=== PATIENT | male | born 1965 | race Caucasian/White ===

== ENCOUNTER 2019-05-16 16:44 | Inpatient (IN) | payer BC ==
[~2019-05-16] VITALS: Ht 190.5 cm; Wt 107.1 kg
[2019-05-16] MEDS ORDERED: PANTOPRAZOLE IV PUSH 40 MG VIAL. IVP ONE (17:45)
[2019-05-16] MEDS ORDERED: IV NORMAL SALINE 1000ML BAG 1,000 ML IV ONE ×2 (17:45→23:00)
[2019-05-16 17:53] LABS: FECAL OB PT POSITIVE (NEG)
--- NOTE | 2019-05-16 18:17 | EKG ---
[facility] [address] [place] [address] Test Date: 2019-05-16 Test Time: 17:40:55 Pat Name: PUMA RODRIGUEZ Department: Room: Gender: M [employer] Clerk: : 1965 Requested By: TIARA HOLLEY Order Number: [id number] Reading MD: Measurements Intervals [place] Rate: 83 P: 56 FL: 148 QRS: -8 QRSD: 94 T: 12 QT: 392 QTc: 461 Interpretive Statements SINUS RHYTHM LEFTWARD AXIS OTHERWISE NORMAL ECG RI6.01 No previous ECG available for comparison
[2019-05-16 18:21] LABS: BASO % 1 % (0-3); EOS # 0.1 x10^3/uL (0.0-0.7); EOS % 3 % (0-3); HEMATOCRIT 26.3 % (39.0-53.0); HEMOGLOBIN 9.1 g/dL (13.0-17.5); LYMPH # 0.5 x10^3/uL (1.0-4.8); LYMPH % 15 % (24-48); MEAN CORPUSCULAR HEMOGLOBIN 28 pg (25-35); MEAN CORPUSCULAR HGB CONC 35 g/dL (31-37); MEAN CORPUSCULAR VOLUME 81 fL (79-100); MONO # 0.4 x10^3/uL (0.0-1.1); MONO % 11 % (0-9); NEUT # 2.2 x10^3/uL (1.8-7.7); NEUT % 70 % (31-73); PLATELET COUNT 54 x10^3/uL (140-400); RED BLOOD COUNT 3.27 x10^6/uL (4.30-5.70); RED CELL DISTRIBUTION WIDTH 15.6 % (11.5-14.5); WHITE BLOOD COUNT 3.2 x10^3/uL (4.0-11.0)
[2019-05-16 18:41] LABS: CALCIUM 8.1 mg/dL (8.5-10.1); CREATININE 0.9 mg/dL (0.7-1.3); GFR 87.6; POTASSIUM 4.1 mmol/L (3.5-5.1)
[2019-05-16 18:47] LABS: ALBUMIN/GLOBULIN RATIO 0.8 (1.0-1.7); MAGNESIUM 1.5 mg/dL (1.8-2.4); TOTAL BILIRUBIN 1.3 mg/dL (0.2-1.0); TOTAL PROTEIN 6.6 g/dL (6.4-8.2)
[2019-05-16] MEDS ORDERED: IOHEXOL 300 MG/ML 100ML VIAL. IV ONE (19:00)
[2019-05-16] MEDS ORDERED: CONTRAST GIVEN. MC PRN (19:00)
[2019-05-16 19:28] LABS: BILIRUBIN,URINE NEGATIVE (NEG); CLARITY,URINE CLEAR; COLOR,URINE YELLOW; NITRITE,URINE NEGATIVE (NEG); PH,URINE 6.5; PROTEIN,URINE NEGATIVE (NEG-TRACE)
[2019-05-16] MEDS ORDERED: MAGNESIUM SULFATE 1GM 100 ML IV ONE (19:30)
[2019-05-16 19:32] LABS: BACTERIA,URINE 0 /HPF (0-FEW); RBC,URINE 0 /HPF (0-2); WBC,URINE OCC /HPF (0-4)
[2019-05-16 19:33] LABS: SQUAMOUS EPITHELIAL CELL,UR MOD /LPF
[2019-05-16 19:41] LABS: BARBITURATES NEG (NEG); BENZODIAZEPINES NEG (NEG); CANNABINOIDS NEG (NEG); COCAINE NEG (NEG); METHADONE NEG (NEG); OPIATES NEG (NEG); PHENCYCLIDINE NEG (NEG)
[2019-05-16 19:42] LABS: AMPHETAMINE/METHAMPHETAMINE NEG (NEG)
--- NOTE | 2019-05-16 20:55 | RAD ---
INDICATION: Rectal bleeding with abdomen pain COMPARISON: None. TECHNIQUE: Axial CT images obtained through the abdomen and pelvis with contrast. One or more of the following individualized dose reduction techniques were utilized for this examination: 1. Automated exposure control; 2. Adjustment of the mA and/or kV according to patient size; 3. Use of iterative reconstruction technique. FINDINGS: Dependent opacity at the left lung base. Coronary artery calcific atherosclerosis. Severe calcific atherosclerosis without abdominal aortic aneurysm. Fat-containing inguinal hernias. Liver is low density with nodular contour. Postcholecystectomy. Spleen is enlarged. Edema within the upper abdomen adjacent to the pancreas and duodenum. Is also seen adjacent to the liver. There are some scattered enlarged lymph nodes. No hydronephrosis. Urinary bladder is partially distended. Subcutaneous edema anterior abdominal wall. The appendix does not appear dilated. There is edema and small amount of fluid seen bilaterally including in the paracolic gutter region. No dilated loops of bowel to suggest obstruction. Degenerative changes throughout the spine with multilevel central canal and neural foraminal stenosis. IMPRESSION: 1. There is edema seen adjacent to the pancreas and duodenum. This appears more centered around the duodenum and would correlate for possible causes such as duodenitis or duodenal ulcer although given that the pancreas is near this level a superimposed pancreatitis is not excluded. 2. There is some additional edema and small amount of fluid tracking more inferiorly along the paracolic gutter region. 3. Cirrhotic liver morphology. There is also splenomegaly. Would correlate for possible causes such as portal hypertension and cirrhosis. 4. There are some enlarged lymph nodes in the upper abdomen which could be reactive in nature but follow-up could be obtained to ensure no growth to exclude neoplastic causes. 5. Calcific atherosclerosis including coronary arteries. 6. Dependent opacity left lung base could be from atelectasis or infiltrate Electronically signed by: Jeffery Gonzalez MD (05/16/2019 8:52 PM) [facility]
--- NOTE | 2019-05-16 22:11 | PHYS DOC ---
Past Medical History Past Medical History: CAD, Diabetes-Type II, Liver Disease, [place], Other Additional Past Medical Histor: Esophagial Varieses, Fatty liver, chirrosis (TIARA HOLLEY APRN) Past Surgical History: Cholecystectomy, Coronary Bypass Surgery (TIARA HOLLEY APRN) Additional Information: Quit in 1999. Alcohol Use: Occasionally Drug Use: None (TIARA HOLLEY APRN) Adult General Chief Complaint Chief Complaint: RECTAL BLEED HPI HPI Patient is a 53 year old male with history of CAD, diabetes type 2, MN, liver cirrhosis, esophageal varices who presents to the ED today complaining of rectal bleeding and bloody stools but began sometime this afternoon. Patient is also complaining of nausea. Denies any abdominal pain. Denies any fever. He states he follows up with a GI specialist who has done an upper GI as well as a colonoscopy, he states he was noted for polyps that were noncancerous which were removed. (TIARA HOLLEY APRN) Review of Systems Review of Systems Constitutional: Denies fever or chills [] Eyes: Denies change in visual acuity, redness, or eye pain [] HENT: Denies nasal congestion or sore throat [] Respiratory: Denies cough or shortness of breath [] Cardiovascular: No additional information not addressed in HPI [] GI: Reports rectal bleeding, nausea. Denies abdominal pain, bloody stools or diarrhea [] : Denies dysuria or hematuria [] Musculoskeletal: Denies back pain or joint pain [] Integument: Denies rash or skin lesions [] Neurologic: Denies headache, focal weakness or sensory changes [] All other systems were reviewed and found to be within normal limits, except as documented in this note. (TIARA HOLLEY APRN) Current Medications Current Medications Current Medications Medications (Trade) Dose Ordered Sig/Mp Start Time Stop Time Status Last Admin Dose Admin Info (CONTRAST GIVEN -- Rx MONITORING) 1 each PRN DAILY PRN 05/16/19 19:00 05/18/19 18:59 Iohexol (Omnipaque 300 Mg/ml) 75 ml 1X ONCE 05/16/19 19:00 05/16/19 19:01 DC 05/16/19 19:43 75 ML Magnesium Sulfate/ Dextrose 100 ml @ 100 mls/hr 1X ONCE 05/16/19 19:30 05/16/19 20:29 DC 05/16/19 20:02 100 MLS/HR Pantoprazole Sodium (PROTONIX VIAL for IV PUSH) 40 mg 1X ONCE 05/16/19 17:45 05/16/19 17:46 DC 05/16/19 18:04 40 MG Sodium Chloride 1,000 ml @ 1,000 mls/hr 1X ONCE 05/16/19 17:45 05/16/19 18:44 DC 05/16/19 18:04 1,000 MLS/HR (KALLI LOOMIS DO) Allergies Allergies Allergies Coded Allergies Type Severity Reaction Last Updated Verified lisinopril Adverse Reaction Intermediate cough 05/16/19 Yes (KALLI LOOMIS DO) Physical Exam Physical Exam Constitutional: Well developed, well nourished, no acute distress, non-toxic appearance. [] HENT: Normocephalic, atraumatic, bilateral external ears normal, oropharynx moist, no oral exudates, nose normal. [] Eyes: PERRLA, EOMI, conjunctiva normal, no discharge. [] Neck: Normal range of motion, no tenderness, supple, no stridor. [] Cardiovascular:Heart rate regular rhythm, no murmur [] Lungs & Thorax: Bilateral breath sounds clear to auscultation [] Abdomen: Bowel sounds normal, soft, no tenderness, no masses, no pulsatile masses. [] Rectal exam External rectum appears normal, positive bedside Hemoccult. No internal hemorrhoids or masses. Skin: Warm, dry, no erythema, no rash. [] Back: No tenderness, no CVA tenderness. [] Extremities: No tenderness, no cyanosis, no clubbing, ROM intact, no edema. [] Neurologic: Alert and oriented X 3, normal motor function, normal sensory function, no focal deficits noted. [] Psychologic: Affect normal, judgement normal, mood normal. [] (TIARA HOLLEY APRN) Current Patient Data Vital Signs Vital Signs Date Time Temp Pulse Resp B/P (MAP) Pulse Ox O2 Delivery O2 Flow Rate FiO2 05/16/19 22:26 73 16 150/67 (94) 98 Room Air 05/16/19 17:24 98.1 98.1 (KALLI LOOMIS DO) Lab Values Laboratory Tests Test 05/16/19 17:20 05/16/19 18:08 05/16/19 19:15 Stool Occult Blood Positive (NEG) White Blood Count 3.2 x10^3/uL (4.0-11.0) L Red Blood Count 3.27 x10^6/uL (4.30-5.70) L Hemoglobin 9.1 g/dL (13.0-17.5) L Hematocrit 26.3 % (39.0-53.0) L Mean Corpuscular Volume 81 fL (79-100) Mean Corpuscular Hemoglobin 28 pg (25-35) Mean Corpuscular Hemoglobin Concent 35 g/dL (31-37) Red Cell Distribution Width 15.6 % (11.5-14.5) H Platelet Count 54 x10^3/uL (140-400) L Neutrophils (%) (Auto) 70 % (31-73) Lymphocytes (%) (Auto) 15 % (24-48) L Monocytes (%) (Auto) 11 % (0-9) H Eosinophils (%) (Auto) 3 % (0-3) Basophils (%) (Auto) 1 % (0-3) Neutrophils # (Auto) 2.2 x10^3/uL (1.8-7.7) Lymphocytes # (Auto) 0.5 x10^3/uL (1.0-4.8) L Monocytes # (Auto) 0.4 x10^3/uL (0.0-1.1) Eosinophils # (Auto) 0.1 x10^3/uL (0.0-0.7) Basophils # (Auto) 0.0 x10^3/uL (0.0-0.2) Sodium Level 142 mmol/L (136-145) Potassium Level 4.1 mmol/L (3.5-5.1) Chloride Level 107 mmol/L (98-107) Carbon Dioxide Level 28 mmol/L (21-32) Anion Gap 7 (6-14) Blood Urea Nitrogen 16 mg/dL (8-26) Creatinine 0.9 mg/dL (0.7-1.3) Estimated GFR (Cockcroft-Gault) 87.6 BUN/Creatinine Ratio 18 (6-20) Glucose Level 270 mg/dL (70-99) H Calcium Level 8.1 mg/dL (8.5-10.1) L Magnesium Level 1.5 mg/dL (1.8-2.4) L Total Bilirubin 1.3 mg/dL (0.2-1.0) H Aspartate Amino Transferase (AST) 83 U/L (15-37) H Alanine Aminotransferase (ALT) 83 U/L (16-63) H Alkaline Phosphatase 133 U/L (46-116) H Creatine Kinase 240 U/L (39-308) Creatine Kinase MB (Mass) 4.3 ng/mL (0.0-3.6) H Creatine Kinase MB Relative Index 1.8 % (0-4) Troponin I Quantitative < 0.017 ng/mL (0.000-0.055) IN-Rov-Z-Type Natriuretic Peptide 131 pg/mL (0-124) H Total Protein 6.6 g/dL (6.4-8.2) Albumin 3.0 g/dL (3.4-5.0) L Albumin/Globulin Ratio 0.8 (1.0-1.7) L Lipase 106 U/L (73-393) Urine Collection Type Unknown Urine Color Yellow Urine Clarity Clear Urine pH 6.5 Urine Specific [place] 1.025 Urine Protein Negative mg/dL (NEG-TRACE) Urine Glucose (UA) >=1000 mg/dL (NEG) Urine Ketones (Stick) Negative mg/dL (NEG) Urine Blood Negative (NEG) Urine Nitrite Negative (NEG) Urine Bilirubin Negative (NEG) Urine Urobilinogen Dipstick 1.0 mg/dL (0.2 mg/dL) Urine Leukocyte Esterase Negative (NEG) Urine RBC 0 /HPF (0-2) Urine WBC Occ /HPF (0-4) Urine Squamous Epithelial Cells Mod /LPF Urine Bacteria 0 /HPF (0-FEW) Urine Mucus Slight /LPF Urine Opiates Screen Neg (NEG) Urine Methadone Screen Neg (NEG) Urine Barbiturates Neg (NEG) Urine Phencyclidine Screen Neg (NEG) Urine Amphetamine/Methamphetamine Neg (NEG) Urine Benzodiazepines Screen Neg (NEG) Urine Cocaine Screen Neg (NEG) Urine Cannabinoids Screen Neg (NEG) Urine Ethyl Alcohol Neg (NEG) Laboratory Tests 05/16/19 18:08 Laboratory Tests 05/16/19 18:08 (KALLI LOOMIS DO) EKG EKG [address] Loomis sinus rhythm Hr 83 no STEMI[] (TIARA HOLLEY APRN) Radiology/Procedures Radiology/Procedures []PROCEDURE: CT ABD PELV W/ IV CONTRST ONLY INDICATION: Rectal bleeding with abdomen pain COMPARISON: None. TECHNIQUE: Axial CT images obtained through the abdomen and pelvis with contrast. One or more of the following individualized dose reduction techniques were utilized for this examination: 1. Automated exposure control; 2. Adjustment of the mA and/or kV according to patient size; 3. Use of iterative reconstruction technique. FINDINGS: Dependent opacity at the left lung base. Coronary artery calcific atherosclerosis. Severe calcific atherosclerosis without abdominal aortic aneurysm. Fat-containing inguinal hernias. Liver is low density with nodular contour. Postcholecystectomy. Spleen is enlarged. Edema within the upper abdomen adjacent to the pancreas and duodenum. Is also seen adjacent to the liver. There are some scattered enlarged lymph nodes. No hydronephrosis. Urinary bladder is partially distended. Subcutaneous edema anterior abdominal wall. The appendix does not appear dilated. There is edema and small amount of fluid seen bilaterally including in the paracolic gutter region. No dilated loops of bowel to suggest obstruction. Degenerative changes throughout the spine with multilevel central canal and neural foraminal stenosis. IMPRESSION: 1. There is edema seen adjacent to the pancreas and duodenum. This appears more centered around the duodenum and would correlate for possible causes such as duodenitis or duodenal ulcer although given that the pancreas is near this level a superimposed pancreatitis is not excluded. 2. There is some additional edema and small amount of fluid tracking more inferiorly along the paracolic gutter region. 3. Cirrhotic liver morphology. There is also splenomegaly. Would correlate for possible causes such as portal hypertension and cirrhosis. 4. There are some enlarged lymph nodes in the upper abdomen which could be reactive in nature but follow-up could be obtained to ensure no growth to exclude neoplastic causes. 5. Calcific atherosclerosis including coronary arteries. 6. Dependent opacity left lung base could be from atelectasis or infiltrate Electronically signed by: uSsana Edwards MD (05/16/2019 8:52 PM) [facility] DICTATED and SIGNED BY: SUSANA EDWARDS MD DATE: 05/16/192051 (TIARA HOLLEY APRN) Course & Med Decision Making Course & Med Decision Making Pertinent Labs and Imaging studies reviewed. (See chart for details) This is a 53-year-old male patient presenting to the ED today with rectal bleeding that began this afternoon. CBC with a hemoglobin of 9.1, hematocrit 26.3, glucose 270, magnesium 1.5-given Magnesium IV, AST and ALT are 83. Patient states he has had rectal bleeding before and his hemoglobin tends to run low as low as 7.0. His Hemoccult is positive. He was given Protonix IV push in the ED. I spoke to Dr. Tamara ROTH. Admitted under Dr. Smith IV protonix and NS ordered (TIARA HOLLEY APRN) Dragon Disclaimer Dragon Disclaimer This electronic medical record was generated, in whole or in part, using a voice recognition dictation system. (TIARA HOLLEY APRN) Departure Departure Impression: Primary Impression: Rectal bleeding Additional Impressions: Transaminitis Hypomagnesemia Disposition: ADMITTED INPATIENT Condition: STABLE Referrals: UNKNOWN PCP NAME (PCP) Attending Signature Attending Signature I have reviewed the PA/COOK ROOM SUPERVISOR's note and plan of care. I was available for consultation as needed during the patient's visit in the emergency department. I agree with the clinical impression, plan, and disposition. (KALLI LOOMIS DO) Problem Qualifiers TIARA HOLLEY APRN May 16, 2019 22:11 KALLI LOOMIS DO May 18, 2019 04:19
[2019-05-16] MEDS ORDERED: MORPHINE SULFATE 4 MG/ML VIAL. IV PRN (22:45)
[2019-05-16] MEDS ORDERED: ONDANSETRON PF 4 MG/2 ML VIAL. IV PRN (22:45)
[2019-05-16] MEDS ORDERED: MAGNESIUM SULFATE 2GM 50 ML IV ONE (23:00)
[2019-05-16] MEDS: PANTOPRAZOLE SODIUM IV DRIP 80 MG in IV NORMAL SALINE 100ML 100 ML IV SCH (23:52)
[2019-05-17] VITALS (7 sets, daily range): BP systolic 111–132; BP diastolic 54–73
--- NOTE | 2019-05-17 00:15 | NUR ---
Pt. arrived on unit by wheelchair from ED with Suri at bedside. at 0015. Pt. A&Ox4, RA, VSS. No complaints of pain. Bed in lowest position and call light within reach. Will continue to monitor.
[2019-05-17] MEDS ORDERED: CRESTOR20 MG PO (02:10)
[2019-05-17] MEDS ORDERED: PANT20TA2 PO (02:10)
[2019-05-17] MEDS ORDERED: INSU100V37 SQ (02:10)
[2019-05-17] MEDS ORDERED: IRBE300T3 PO (02:10)
[2019-05-17] MEDS ORDERED: METF10007 PO (02:10)
[2019-05-17] MEDS ORDERED: INSU100C4 SQ (02:10)
[2019-05-17] MEDS ORDERED: PROP40TA PO (02:10)
--- NOTE | 2019-05-17 08:08 | PDOC1 ---
History and Physical Date of Admission Date of Admission DATE: 05/17/19 TIME: 08:05 Identification/Chief Complaint Chief Complaint Blood in stool Source Source: Patient History of Present Illness History of Present Illness Mr Tucker is a 53yo M w/ PMHx hypertriglyceridemia, DM2, Obesity, CAD w/ stents, HTN, HLD, BPH, GERD, cirrhosis w/ esophageal varices, RUPAL, colon polyps who presents with dark tarry and bright red blood in his stool. Has occurred about every 2 hours since. Reports h/o cirrhosis 2/2 [place] and esophageal varices - previously evaluated at [facility] and [facility]/transplant. Some nausea w/o vomiting. Doesn't feel hungry but would like water. No dysphagia. H/o GERD (denies heartburn/reflux) on pantoprazole QD. No abd pain. Denies diarrhea and constipation. No weight loss. [facility] records shown to be on his [employer] mayela - neg Hepatitis panel, MELA, AMA, HFE, and normal alpha 1 antitrypsin. Also sayearnest was seen at [facility] on Thursday for chest pain - says was given ASA and PE was ruled out last week. Has had EGD twice in the past year, states he has grade II varices. No transfusions, but has had iron IV previously. Denies CP and SOB currently, just feels nausea and fatigue. Past Medical History Cardiovascular: CAD, HTN Pulmonary: No pertinent hx GI: Constipation, Diverticulosis, GERD Heme/Onc: Anemia NOS Hepatobiliary: Cirrhosis Psych: No pertinent hx Rheumatologic: No pertinent hx Infectious disease: No pertinent hx ENT: No pertinent hx Renal/: No pertinent hx Endocrine: No pertinent hx Dermatology: No pertinent hx Past Surgical History Past Surgical History: Cholecystectomy Family History Family History: Diabetes, Hepatitis, High Cholestrol Social History Smoke: No ALCOHOL: none Drugs: None Current Problem List Problem List Problems Medical Problems: (1) Hypomagnesemia Status: Acute (2) Rectal bleeding Status: Acute (3) Transaminitis Status: Acute Current Medications Current Medications Current Medications Pantoprazole Sodium (PROTONIX VIAL for IV PUSH) 40 mg 1X ONCE IVP Last administered on 05/16/19at 18:04; Start 05/16/19 at 17:45; Stop 05/16/19 at 17:46; Status DC Sodium Chloride 1,000 ml @ 1,000 mls/hr 1X ONCE IV Last administered on 05/16/19at 18:04; Start 05/16/19 at 17:45; Stop 05/16/19 at 18:44; Status DC Iohexol (Omnipaque 300 Mg/ml) 75 ml 1X ONCE IV Last administered on 05/16/19at 19:43; Start 05/16/19 at 19:00; Stop 05/16/19 at 19:01; Status DC Info (CONTRAST GIVEN -- Rx MONITORING) 1 each PRN DAILY PRN MC SEE COMMENTS; Start 05/16/19 at 19:00; Stop 05/18/19 at 18:59 Magnesium Sulfate/ Dextrose 100 ml @ 100 mls/hr 1X ONCE IV Last administered on 05/16/19at 20:02; Start 05/16/19 at 19:30; Stop 05/16/19 at 20:29; Status DC Ondansetron HCl (Zofran) 4 mg PRN Q8HRS PRN IV NAUSEA/VOMITING 1ST CHOICE Last administered on 05/17/19at 02:10; Start 05/16/19 at 22:45; Stop 05/17/19 at 22:44 Morphine Sulfate (Morphine Sulfate) 4 mg PRN Q2HR PRN IV SEVERE PAIN 7-10; Start 05/16/19 at 22:45; Stop 05/17/19 at 22:44 Pantoprazole Sodium 80 mg/ Sodium Chloride 100 ml @ 10 mls/hr Q10H IV Last administered on 05/16/19at 23:53; Start 05/16/19 at 23:00; Stop 05/17/19 at 22:59 Sodium Chloride 1,000 ml @ 75 mls/hr 1X ONCE IV Last administered on 05/16/19at 23:53; Start 05/16/19 at 23:00; Stop 05/17/19 at 12:19 Magnesium Sulfate 50 ml @ 25 mls/hr 1X ONCE IV Last administered on 05/16/19at 23:53; Start 05/16/19 at 23:00; Stop 05/17/19 at 00:59; Status DC Active Scripts Active Reported Irbesartan 300 Mg Tablet 150 Mg PO DAILY Tresiba (Insulin Degludec) 100 Unit/1 Ml Vial 116 Unit SQ HS Novolog (Insulin Aspart) 100 Unit/1 Ml Cartridge 35 Unit SQ WITH BREAKFAST Propranolol Hcl 40 Mg Tablet 1 Tab PO BID Crestor (Rosuvastatin Calcium) 20 Mg Tablet 1 Tab PO DAILY Protonix (Pantoprazole Sodium) 20 Mg Tablet.dr 1 Tab PO DAILY Metformin Hcl 1,000 Mg Tablet 1,000 Mg PO BIDWMEALS Allergies Allergies: Coded Allergies: lisinopril (Verified Adverse Reaction, Intermediate, cough, 05/16/19) cough ROS General: YES: Fatigue, Malaise, Appetite; No: Chills, Night Sweats, Other PSYCHOLOGICAL ROS: No: Anxiety, Behavioral Disorder, Concentration difficultie, Decreased libido, Depression, Disorientation, Hallucinations, Hostility, Irritablity, Memory difficulties, Mood Swings, Obsessive thoughts, Physical abuse, Sexual abuse, Sleep disturbances, Suicidal ideation, Other Eyes: No Blurry vision, No Decreased vision, No Double vision, No Dry eyes, No Excessive tearing, No Eye Pain, No Itchy Eyes, No Loss of vision, No Photophobia, No Scotomata, No Uses contacts, No Uses glasses, No Other HEENT: No: Heacaches, Visual Changes, Hearing change, Nasal congestion, Nasal discharge, Oral lesions, Sinus pain, Sore Throat, Epistaxis, Sneezing, Snoring, Tinnitus, Vertigo, Vocal changes, Other ALLERGY AND IMMUNOLOGY: No: Hives, Insect Bite Sensitivity, Itchy/Watery Eyes, Nasal Congestion, Post Nasal Drip, Seasonal Allergies, Other Hematological and Lymphatic: No: Bleeding Problems, Blood Clots, Blood Transfusions, Brusing, Night Sweats, Pallor, Swollen Lymph Nodes, Other ENDOCRINE: No: Breast Changes, Galactorrhea, Hair Pattern Changes, Hot Flashes, Malaise/lethargy, Mood Swings, Palpitations, Polydipsia/polyuria, Skin Changes, Temperature Intolerance, Unexpected Weight Changes, Other Breast: No New/Changing Breast Lumps, No Nipple changes, No Nipple discharge, No Other Respiratory: No: Cough, Hemoptysis, Orthopnea, Pleuritic Pain, Shortness of breath, SOB with excertion, Sputum Changes, Stridor, Tachypnea, Wheezing, Other Cardiovascular: No Chest Pain, No Palpitations, No Orthopnea, No Paroxysmal Noc. Dyspnea, No Edema, No Lt Headedness, No Other Gastrointestinal: Yes Nausea, Yes Abdominal Pain, Yes Melena, Yes Hematochezia; No Vomiting, No Diarrhea, No Constipation, No Other Genitourinary: No Dysuria, No Frequency, No Incontinence, No Hematuria, No Retention, No Discharge, No Urgency, No Pain, No Flank Pain, No Other, No , No , No , No , No , No , No Musculoskeletal: No Gait Disturbance, No Joint Pain, No Joint Stiffness, No Joint Swelling, No Muscle Pain, No Muscular Weakness, No Pain In:, No Swelling In:, No Other Neurological: No Behavorial Changes, No Bowel/Bladder ControlChng, No Confusion, No Dizziness, No Gait Disturbance, No Headaches, No Impaired Coord/balance, No Memory Loss, No Numbness/Tingling, No Seizures, No Speech Problems, No Tremors, No Visual Changes, No Weakness, No Other Skin: No Dry Skin, No Eczema, No Hair Changes, No Lumps, No Mole Changes, No Mottling, No Nail Changes, No Pruritus, No Rash, No Skin Lesion Changes, No Other, No Acne Physical Exam General: Alert, Oriented X3, Cooperative, No acute distress HEENT: Atraumatic, PERRLA, EOMI, Mucous membr. moist/pink Lungs: Clear to auscultation, Normal air movement Heart: S1S2, RRR, no gallops, no murmurs Abdomen: Normal bowel sounds, Soft, Other (epigastric tenderness, spleen palpable) Rectal Exam: hemorrhoids Extremities: No clubbing, No cyanosis, No edema, Normal pulses, No tenderness/swelling Skin: No rashes, No breakdown, No significant lesion Neuro: Normal gait, Normal speech, Strength at 5/5 X4 ext, Normal tone, Sensation intact, Cranial nerves 3-12 NL, Reflexes 2+ Psych/Mental Status: Mental status NL, Mood NL Vitals Vitals Vital Signs Date Time Temp Pulse Resp B/P (MAP) Pulse Ox O2 Delivery O2 Flow Rate FiO2 05/17/19 03:00 98.2 76 18 131/61 (84) 97 Room Air 98.2 Labs Labs Laboratory Tests Test 05/16/19 17:20 05/16/19 18:08 05/16/19 19:15 05/17/19 02:02 Stool Occult Blood Positive (NEG) White Blood Count 3.2 x10^3/uL (4.0-11.0) Red Blood Count 3.27 x10^6/uL (4.30-5.70) Hemoglobin 9.1 g/dL (13.0-17.5) Hematocrit 26.3 % (39.0-53.0) Mean Corpuscular Volume 81 fL (79-100) Mean Corpuscular Hemoglobin 28 pg (25-35) Mean Corpuscular Hemoglobin Concent 35 g/dL (31-37) Red Cell Distribution Width 15.6 % (11.5-14.5) Platelet Count 54 x10^3/uL (140-400) Neutrophils (%) (Auto) 70 % (31-73) Lymphocytes (%) (Auto) 15 % (24-48) Monocytes (%) (Auto) 11 % (0-9) Eosinophils (%) (Auto) 3 % (0-3) Basophils (%) (Auto) 1 % (0-3) Neutrophils # (Auto) 2.2 x10^3/uL (1.8-7.7) Lymphocytes # (Auto) 0.5 x10^3/uL (1.0-4.8) Monocytes # (Auto) 0.4 x10^3/uL (0.0-1.1) Eosinophils # (Auto) 0.1 x10^3/uL (0.0-0.7) Basophils # (Auto) 0.0 x10^3/uL (0.0-0.2) Sodium Level 142 mmol/L (136-145) Potassium Level 4.1 mmol/L (3.5-5.1) Chloride Level 107 mmol/L (98-107) Carbon Dioxide Level 28 mmol/L (21-32) Anion Gap 7 (6-14) Blood Urea Nitrogen 16 mg/dL (8-26) Creatinine 0.9 mg/dL (0.7-1.3) Estimated GFR (Cockcroft-Gault) 87.6 BUN/Creatinine Ratio 18 (6-20) Glucose Level 270 mg/dL (70-99) Calcium Level 8.1 mg/dL (8.5-10.1) Magnesium Level 1.5 mg/dL (1.8-2.4) Total Bilirubin 1.3 mg/dL (0.2-1.0) Aspartate Amino Transf (AST/SGOT) 83 U/L (15-37) Alanine Aminotransferase (ALT/SGPT) 83 U/L (16-63) Alkaline Phosphatase 133 U/L (46-116) Creatine Kinase 240 U/L (39-308) Creatine Kinase MB (Mass) 4.3 ng/mL (0.0-3.6) Creatine Kinase MB Relative Index 1.8 % (0-4) Troponin I Quantitative < 0.017 ng/mL (0.000-0.055) SI-Pgr-R-Type Natriuretic Peptide 131 pg/mL (0-124) Total Protein 6.6 g/dL (6.4-8.2) Albumin 3.0 g/dL (3.4-5.0) Albumin/Globulin Ratio 0.8 (1.0-1.7) Lipase 106 U/L (73-393) Urine Collection Type Unknown Urine Color Yellow Urine Clarity Clear Urine pH 6.5 Urine Specific [place] 1.025 Urine Protein Negative mg/dL (NEG-TRACE) Urine Glucose (UA) >=1000 mg/dL (NEG) Urine Ketones (Stick) Negative mg/dL (NEG) Urine Blood Negative (NEG) Urine Nitrite Negative (NEG) Urine Bilirubin Negative (NEG) Urine Urobilinogen Dipstick 1.0 mg/dL (0.2 mg/dL) Urine Leukocyte Esterase Negative (NEG) Urine RBC 0 /HPF (0-2) Urine WBC Occ /HPF (0-4) Urine Squamous Epithelial Cells Mod /LPF Urine Bacteria 0 /HPF (0-FEW) Urine Mucus Slight /LPF Urine Opiates Screen Neg (NEG) Urine Methadone Screen Neg (NEG) Urine Barbiturates Neg (NEG) Urine Phencyclidine Screen Neg (NEG) Urine Amphetamine/Methamphetamine Neg (NEG) Urine Benzodiazepines Screen Neg (NEG) Urine Cocaine Screen Neg (NEG) Urine Cannabinoids Screen Neg (NEG) Urine Ethyl Alcohol Neg (NEG) Glucose (Fingerstick) 190 mg/dL (70-99) Laboratory Tests Test 05/16/19 17:20 05/16/19 18:08 05/16/19 19:15 05/17/19 02:02 Stool Occult Blood Positive (NEG) White Blood Count 3.2 x10^3/uL (4.0-11.0) Red Blood Count 3.27 x10^6/uL (4.30-5.70) Hemoglobin 9.1 g/dL (13.0-17.5) Hematocrit 26.3 % (39.0-53.0) Mean Corpuscular Volume 81 fL (79-100) Mean Corpuscular Hemoglobin 28 pg (25-35) Mean Corpuscular Hemoglobin Concent 35 g/dL (31-37) Red Cell Distribution Width 15.6 % (11.5-14.5) Platelet Count 54 x10^3/uL (140-400) Neutrophils (%) (Auto) 70 % (31-73) Lymphocytes (%) (Auto) 15 % (24-48) Monocytes (%) (Auto) 11 % (0-9) Eosinophils (%) (Auto) 3 % (0-3) Basophils (%) (Auto) 1 % (0-3) Neutrophils # (Auto) 2.2 x10^3/uL (1.8-7.7) Lymphocytes # (Auto) 0.5 x10^3/uL (1.0-4.8) Monocytes # (Auto) 0.4 x10^3/uL (0.0-1.1) Eosinophils # (Auto) 0.1 x10^3/uL (0.0-0.7) Basophils # (Auto) 0.0 x10^3/uL (0.0-0.2) Sodium Level 142 mmol/L (136-145) Potassium Level 4.1 mmol/L (3.5-5.1) Chloride Level 107 mmol/L (98-107) Carbon Dioxide Level 28 mmol/L (21-32) Anion Gap 7 (6-14) Blood Urea Nitrogen 16 mg/dL (8-26) Creatinine 0.9 mg/dL (0.7-1.3) Estimated GFR (Cockcroft-Gault) 87.6 BUN/Creatinine Ratio 18 (6-20) Glucose Level 270 mg/dL (70-99) Calcium Level 8.1 mg/dL (8.5-10.1) Magnesium Level 1.5 mg/dL (1.8-2.4) Total Bilirubin 1.3 mg/dL (0.2-1.0) Aspartate Amino Transf (AST/SGOT) 83 U/L (15-37) Alanine Aminotransferase (ALT/SGPT) 83 U/L (16-63) Alkaline Phosphatase 133 U/L (46-116) Creatine Kinase 240 U/L (39-308) Creatine Kinase MB (Mass) 4.3 ng/mL (0.0-3.6) Creatine Kinase MB Relative Index 1.8 % (0-4) Troponin I Quantitative < 0.017 ng/mL (0.000-0.055) DB-[id number]-R-Type Natriuretic Peptide 131 pg/mL (0-124) Total Protein 6.6 g/dL (6.4-8.2) Albumin 3.0 g/dL (3.4-5.0) Albumin/Globulin Ratio 0.8 (1.0-1.7) Lipase 106 U/L (73-393) Urine Collection Type Unknown Urine Color Yellow Urine Clarity Clear Urine pH 6.5 Urine Specific [place] 1.025 Urine Protein Negative mg/dL (NEG-TRACE) Urine Glucose (UA) >=1000 mg/dL (NEG) Urine Ketones (Stick) Negative mg/dL (NEG) Urine Blood Negative (NEG) Urine Nitrite Negative (NEG) Urine Bilirubin Negative (NEG) Urine Urobilinogen Dipstick 1.0 mg/dL (0.2 mg/dL) Urine Leukocyte Esterase Negative (NEG) Urine RBC 0 /HPF (0-2) Urine WBC Occ /HPF (0-4) Urine Squamous Epithelial Cells Mod /LPF Urine Bacteria 0 /HPF (0-FEW) Urine Mucus Slight /LPF Urine Opiates Screen Neg (NEG) Urine Methadone Screen Neg (NEG) Urine Barbiturates Neg (NEG) Urine Phencyclidine Screen Neg (NEG) Urine Amphetamine/Methamphetamine Neg (NEG) Urine Benzodiazepines Screen Neg (NEG) Urine Cocaine Screen Neg (NEG) Urine Cannabinoids Screen Neg (NEG) Urine Ethyl Alcohol Neg (NEG) Glucose (Fingerstick) 190 mg/dL (70-99) Images Images CT Abdomen/pelvis - 1. There is edema seen adjacent to the pancreas and duodenum. This appears more centered around the duodenum and would correlate for possible causes such as duodenitis or duodenal ulcer although given that the pancreas is near this level a superimposed pancreatitis is not excluded. 2. There is some additional edema and small amount of fluid tracking more inferiorly along the paracolic gutter region. 3. Cirrhotic liver morphology. There is also splenomegaly. Would correlate for possible causes such as portal hypertension and cirrhosis. 4. There are some enlarged lymph nodes in the upper abdomen which could be r eactive in nature but follow-up could be obtained to ensure no growth to exclude neoplastic causes. 5. Calcific atherosclerosis including coronary arteries. 6. Dependent opacity left lung base could be from atelectasis or infiltrate VTE Prophylaxis Ordered VTE Prophylaxis Devices: Contraindicated VTE Pharmacological Prophylaxi: Contraindicated Assessment/Plan Assessment/Plan A/P: Acute GI bleed - acute blood loss anemia - will type and screen, H&H q 8, will transfuse 2 units if his Hb drops below 7. Already down to 7.6 from 9.1 last night. GI consulted, will get tagged RBC scan Cirrhosis with varices - NAFLD per history [EGD and colonoscopy by Dr. Rufino Yepez on 10/04/18 for RUPAL showed grade II esophageal varices, normal stomach, normal [id number] sessile polyp in distal descending colon, and 5mm sessile polyp in distal sigmoid colon. EGD by Dr. Rufino Yepez on 04/04/19 showed grade II esophageal varices (unchanged, nonbleeding) and gastritis. Recommendations to repeat EGD in 6 months, increase propranolol to 40mg BID, and to consider prophylactic banding w/ varices unchanged w/ increased medication. S/p cholecystectomy in 08/2018 (Dr. Barrera) for symptomatic cholelithiasis - cirrhosis noted intraoperatively.] Hypertriglyceridemia - previously on fenofibrate, now on insulin, advised prescription fish oil DM2 - hold metformin, may need contrast to assess bleed. Basal bolus plus in house Obesity - counseled on weight loss CAD w/ stents - hold ASA for GI bleed, cont propranolol HTN - hold losartan for lower BP HLD - cont meds BPH - cont meds GERD - IV PPI FEN - NPO PPX - IV PPI FULL CODE Dispo - inpatient for acute blood loss anemia JODI CAMPBELL MD May 17, 2019 08:08
[2019-05-17] MEDS ORDERED: DEXTROSE 50% 25 GM / 50ML DISP.SYRIN. IV PRN (08:15)
[2019-05-17] MEDS ORDERED: IV DEXTROSE 5% 250 ML BAG. IV PRN (08:15)
[2019-05-17 08:53] LABS: BASO % 0 % (0-3); EOS # 0.1 x10^3/uL (0.0-0.7); EOS % 3 % (0-3); HEMATOCRIT 22.7 % (39.0-53.0); HEMOGLOBIN 7.6 g/dL (13.0-17.5); LYMPH # 0.5 x10^3/uL (1.0-4.8); LYMPH % 16 % (24-48); MEAN CORPUSCULAR HEMOGLOBIN 27 pg (25-35); MEAN CORPUSCULAR HGB CONC 33 g/dL (31-37); MEAN CORPUSCULAR VOLUME 80 fL (79-100); MONO # 0.3 x10^3/uL (0.0-1.1); MONO % 9 % (0-9); NEUT # 2.2 x10^3/uL (1.8-7.7); NEUT % 71 % (31-73); PLATELET COUNT 49 x10^3/uL (140-400); RED BLOOD COUNT 2.83 x10^6/uL (4.30-5.70); WHITE BLOOD COUNT 3.1 x10^3/uL (4.0-11.0)
[2019-05-17] MEDS: LOSARTAN POTASSIUM 50 MG TABLET. PO SCH (09:00)
[2019-05-17] MEDS ORDERED: ONDANSETRON PF 4 MG/2 ML VIAL. IV PRN (09:15)
[2019-05-17 09:16] LABS: ALBUMIN 2.7 g/dL (3.4-5.0); ALBUMIN/GLOBULIN RATIO 0.8 (1.0-1.7); CALCIUM 8.3 mg/dL (8.5-10.1); CREATININE 0.7 mg/dL (0.7-1.3); GFR 117.1; MAGNESIUM 1.9 mg/dL (1.8-2.4); TOTAL BILIRUBIN 1.1 mg/dL (0.2-1.0); TOTAL PROTEIN 6.3 g/dL (6.4-8.2)
--- NOTE | 2019-05-17 09:37 | PDOC2 ---
GI CONSULT Reason For Consult: GI bleed HPI: HPI: 53 y/o male admitted through ER. Yesterday after eating some sweet and sour soup w/ crab wontons, felt urge to stool. Passed "black and red" blood. Has occurred about every 2 hours since. Reports h/o cirrhosis 2/2 [place] and esophageal varices - previously evaluated at [facility] and /transplant. Some nausea w/o vomiting. Doesn't feel hungry but would like water. No dysphagia. H/o GERD (denies heartburn/reflux) on pantoprazole QD. No abd pain. Denies diarrhea and constipation. No weight loss. EGD and colonoscopy by Dr. Rufino Yepez on 10/04/18 for RUPAL showed grade II esophageal varices, normal stomach, normal [id number] sessile polyp in distal descending colon, and 5mm sessile polyp in distal sigmoid colon. EGD by Dr. Rufino Yepez on 04/04/19 showed grade II esophageal varices (unchanged, nonbleeding) and gastritis. Recommendations to repeat EGD in 6 months, increase propranolol to 40mg BID, and to consider prophylactic banding w/ varices unchanged w/ increased medication. S/p cholecystectomy in 08/2018 (Dr. Barrera) for symptomatic cholelithiasis - cirrhosis noted intraoperatively. Denies pancreas history. No NSAIDs. H/o RUPAL - has received iron transfusions at . Shows me lab results from on his phone - these include neg Hepatitis panel, MELA, AMA, HFE, and normal alpha 1 antitrypsin. Also says was seen at [facility] on Thursday for chest pain - says was given ASA and PE was ruled out. PMH: PMH: CAD w/ stents, HTN, HLD, BPH, IDDM, GERD, cirrhosis w/ esophageal varices, RUPAL, colon polyps, right tibia fracture cholecystectomy, liver biopsy FH: Family History: Other (father - cirrhosis/had transplant) Social History: Smoke: Quit ALCOHOL: other (sober since 08/2018 - used to "green party," most recently had a few beers a month) Drugs: None ROS: GEN: Denies fevers, chills, sweats HEENT: Denies blurred vision, sore throat CV: Denies chest pain RESP: Denies shortness of air, cough GI: Per HPI : Denies hematuria, dysuria ENDO: Denies weight changes NEURO: Denies confusion, dizziness MSK: Denies weakness, joint pain/swelling SKIN: Denies jaundice, pruritus Vitals: Vitals: Vital Signs Date Time Temp Pulse Resp B/P (MAP) Pulse Ox O2 Delivery O2 Flow Rate FiO2 05/17/19 07:00 98.2 76 18 126/63 (84) 100 Room Air 98.2 Labs: Labs: Laboratory Tests Test 05/16/19 17:20 05/16/19 18:08 05/16/19 19:15 05/17/19 02:02 Stool Occult Blood Positive (NEG) White Blood Count 3.2 x10^3/uL (4.0-11.0) Red Blood Count 3.27 x10^6/uL (4.30-5.70) Hemoglobin 9.1 g/dL (13.0-17.5) Hematocrit 26.3 % (39.0-53.0) Mean Corpuscular Volume 81 fL (79-100) Mean Corpuscular Hemoglobin 28 pg (25-35) Mean Corpuscular Hemoglobin Concent 35 g/dL (31-37) Red Cell Distribution Width 15.6 % (11.5-14.5) Platelet Count 54 x10^3/uL (140-400) Neutrophils (%) (Auto) 70 % (31-73) Lymphocytes (%) (Auto) 15 % (24-48) Monocytes (%) (Auto) 11 % (0-9) Eosinophils (%) (Auto) 3 % (0-3) Basophils (%) (Auto) 1 % (0-3) Neutrophils # (Auto) 2.2 x10^3/uL (1.8-7.7) Lymphocytes # (Auto) 0.5 x10^3/uL (1.0-4.8) Monocytes # (Auto) 0.4 x10^3/uL (0.0-1.1) Eosinophils # (Auto) 0.1 x10^3/uL (0.0-0.7) Basophils # (Auto) 0.0 x10^3/uL (0.0-0.2) Sodium Level 142 mmol/L (136-145) Potassium Level 4.1 mmol/L (3.5-5.1) Chloride Level 107 mmol/L (98-107) Carbon Dioxide Level 28 mmol/L (21-32) Anion Gap 7 (6-14) Blood Urea Nitrogen 16 mg/dL (8-26) Creatinine 0.9 mg/dL (0.7-1.3) Estimated GFR (Cockcroft-Gault) 87.6 BUN/Creatinine Ratio 18 (6-20) Glucose Level 270 mg/dL (70-99) Calcium Level 8.1 mg/dL (8.5-10.1) Magnesium Level 1.5 mg/dL (1.8-2.4) Total Bilirubin 1.3 mg/dL (0.2-1.0) Aspartate Amino Transf (AST/SGOT) 83 U/L (15-37) Alanine Aminotransferase (ALT/SGPT) 83 U/L (16-63) Alkaline Phosphatase 133 U/L (46-116) Creatine Kinase 240 U/L (39-308) Creatine Kinase MB (Mass) 4.3 ng/mL (0.0-3.6) Creatine Kinase MB Relative Index 1.8 % (0-4) Troponin I Quantitative < 0.017 ng/mL (0.000-0.055) UG-Qcy-L-Type Natriuretic Peptide 131 pg/mL (0-124) Total Protein 6.6 g/dL (6.4-8.2) Albumin 3.0 g/dL (3.4-5.0) Albumin/Globulin Ratio 0.8 (1.0-1.7) Lipase 106 U/L (73-393) Urine Collection Type Unknown Urine Color Yellow Urine Clarity Clear Urine pH 6.5 Urine Specific Matador 1.025 Urine Protein Negative mg/dL (NEG-TRACE) Urine Glucose (UA) >=1000 mg/dL (NEG) Urine Ketones (Stick) Negative mg/dL (NEG) Urine Blood Negative (NEG) Urine Nitrite Negative (NEG) Urine Bilirubin Negative (NEG) Urine Urobilinogen Dipstick 1.0 mg/dL (0.2 mg/dL) Urine Leukocyte Esterase Negative (NEG) Urine RBC 0 /HPF (0-2) Urine WBC Occ /HPF (0-4) Urine Squamous Epithelial Cells Mod /LPF Urine Bacteria 0 /HPF (0-FEW) Urine Mucus Slight /LPF Urine Opiates Screen Neg (NEG) Urine Methadone Screen Neg (NEG) Urine Barbiturates Neg (NEG) Urine Phencyclidine Screen Neg (NEG) Urine Amphetamine/Methamphetamine Neg (NEG) Urine Benzodiazepines Screen Neg (NEG) Urine Cocaine Screen Neg (NEG) Urine Cannabinoids Screen Neg (NEG) Urine Ethyl Alcohol Neg (NEG) Glucose (Fingerstick) 190 mg/dL (70-99) Test 05/17/19 08:03 05/17/19 08:05 Glucose (Fingerstick) 185 mg/dL (70-99) White Blood Count 3.1 x10^3/uL (4.0-11.0) Red Blood Count 2.83 x10^6/uL (4.30-5.70) Hemoglobin 7.6 g/dL (13.0-17.5) Hematocrit 22.7 % (39.0-53.0) Mean Corpuscular Volume 80 fL (79-100) Mean Corpuscular Hemoglobin 27 pg (25-35) Mean Corpuscular Hemoglobin Concent 33 g/dL (31-37) Red Cell Distribution Width 16.0 % (11.5-14.5) Platelet Count 49 x10^3/uL (140-400) Neutrophils (%) (Auto) 71 % (31-73) Lymphocytes (%) (Auto) 16 % (24-48) Monocytes (%) (Auto) 9 % (0-9) Eosinophils (%) (Auto) 3 % (0-3) Basophils (%) (Auto) 0 % (0-3) Neutrophils # (Auto) 2.2 x10^3/uL (1.8-7.7) Lymphocytes # (Auto) 0.5 x10^3/uL (1.0-4.8) Monocytes # (Auto) 0.3 x10^3/uL (0.0-1.1) Eosinophils # (Auto) 0.1 x10^3/uL (0.0-0.7) Basophils # (Auto) 0.0 x10^3/uL (0.0-0.2) Sodium Level 141 mmol/L (136-145) Potassium Level 4.0 mmol/L (3.5-5.1) Chloride Level 108 mmol/L (98-107) Carbon Dioxide Level 25 mmol/L (21-32) Anion Gap 8 (6-14) Blood Urea Nitrogen 18 mg/dL (8-26) Creatinine 0.7 mg/dL (0.7-1.3) Estimated GFR (Cockcroft-Gault) 117.1 BUN/Creatinine Ratio 26 (6-20) Glucose Level 198 mg/dL (70-99) Calcium Level 8.3 mg/dL (8.5-10.1) Magnesium Level 1.9 mg/dL (1.8-2.4) Total Bilirubin 1.1 mg/dL (0.2-1.0) Aspartate Amino Transf (AST/SGOT) 59 U/L (15-37) Alanine Aminotransferase (ALT/SGPT) 62 U/L (16-63) Alkaline Phosphatase 102 U/L (46-116) Total Protein 6.3 g/dL (6.4-8.2) Albumin 2.7 g/dL (3.4-5.0) Albumin/Globulin Ratio 0.8 (1.0-1.7) Allergies: Coded Allergies: lisinopril (Verified Adverse Reaction, Intermediate, cough, 05/16/19) cough Medications: Current Medications Medications (Trade) Dose Ordered Sig/Mp Route PRN Reason Start Time Stop Time Status Last Admin Dose Admin Pantoprazole Sodium (PROTONIX VIAL for IV PUSH) 40 mg 1X ONCE IVP 05/16/19 17:45 05/16/19 17:46 DC 05/16/19 18:04 Sodium Chloride 1,000 ml @ 1,000 mls/hr 1X ONCE IV 05/16/19 17:45 05/16/19 18:44 DC 05/16/19 18:04 Iohexol (Omnipaque 300 Mg/ml) 75 ml 1X ONCE IV 05/16/19 19:00 05/16/19 19:01 DC 05/16/19 19:43 Magnesium Sulfate/ Dextrose 100 ml @ 100 mls/hr 1X ONCE IV 05/16/19 19:30 05/16/19 20:29 DC 05/16/19 20:02 Ondansetron HCl (Zofran) 4 mg PRN Q8HRS PRN IV NAUSEA/VOMITING 1ST CHOICE 05/16/19 22:45 05/17/19 09:13 DC 05/17/19 02:10 Pantoprazole Sodium 80 mg/ Sodium Chloride 100 ml @ 10 mls/hr Q10H IV 05/16/19 23:00 05/17/19 22:59 05/16/19 23:53 Sodium Chloride 1,000 ml @ 75 mls/hr 1X ONCE IV 05/16/19 23:00 05/17/19 12:19 05/16/19 23:53 Magnesium Sulfate 50 ml @ 25 mls/hr 1X ONCE IV 05/16/19 23:00 05/17/19 00:59 DC 05/16/19 23:53 Imaging: Imaging: CT A/P IMPRESSION: 1. There is edema seen adjacent to the pancreas and duodenum. This appears more centered around the duodenum and would correlate for possible causes such as duodenitis or duodenal ulcer although given that the pancreas is near this level a superimposed pancreatitis is not excluded. 2. There is some additional edema and small amount of fluid tracking more inferiorly along the paracolic gutter region. 3. Cirrhotic liver morphology. There is also splenomegaly. Would correlate for possible causes such as portal hypertension and cirrhosis. 4. There are some enlarged lymph nodes in the upper abdomen which could be reactive in nature but follow-up could be obtained to ensure no growth to exclude neoplastic causes. 5. Calcific atherosclerosis including coronary arteries. 6. Dependent opacity left lung base could be from atelectasis or infiltrate PE: GEN: NAD HEENT: Atraumatic, PERRL LUNGS: CTAB HEART: RRR ABD: hyperactive BS, S/ND/NT EXTREMITY: No edema SKIN: No rashes, no jaundice NEURO/PSYCH: A & O �3 A/P: A/P: Hematochezia/melena Cirrhosis/[place], esophageal varices - splenomegaly on CT as well H/o RUPAL/pancytopenia - Hgb from 9.[address] - edema seen adjacent to the pancreas and duodenum, edema and small amount of fluid tracking along the paracolic gutter region CRC screen, h/o colon polyps - UTD S/p cholecystectomy -- Reviewed w/ Dr. Cross - check bleeding scan. Remain NPO for now, continue PPI. Nurse asked to change Zofran from TID to QID PRN - gave okay. MONA-BLAKE LOZOYA May 17, 2019 09:37
[2019-05-17] MEDS: PANTOPRAZOLE SODIUM IV DRIP 80 MG in IV NORMAL SALINE 100ML 100 ML IV SCH ×2 (09:53→18:21)
[2019-05-17] MEDS: PROPRANOLOL 40 MG TABLET. PO SCH ×2 (09:54→21:24)
[2019-05-17] MEDS ORDERED: PROCHLORPERAZINE 10 MG/2 ML VIAL. IV PRN (10:15)
[2019-05-17] MEDS: INSULIN LISPRO 300 UNITS/3 ML VIAL. SQ SCH ×3 (11:30→21:00)
[2019-05-17] MEDS ORDERED: HEPARIN for NUC MED 500 UNIT/5 ML DISP.SYRIN. IV ONE (12:45)
--- NOTE | 2019-05-17 14:08 | NUR ---
SS following for discharge planning. SS reviewed pt chart. Pt is from home with spouse and is currently on room air. No discharge needs noted at this time. SS will continue to follow for discharge planning.
--- NOTE | 2019-05-17 15:05 | RAD ---
GI bleed scan 05/17/2019 INDICATION: Hematochezia, melena. COMPARISON: CT abdomen/pelvis 05/16/2019. TECHNIQUE: Scintigraphic imaging of the gastric intestinal tract was performed after the administration of 22.0 mCi technetium 99m tagged red blood cells. FINDINGS: There is physiologic uptake identified within the blood pool and spleen. Spleen is enlarged as identified on CT abdomen/pelvis from 06/03/2019. There is no pooling or movement of radiotracer to suggest acute gastric intestinal hemorrhage. IMPRESSION: No scintigraphic evidence for acute gastric intestinal hemorrhage. Electronically signed by: Cassandra Meeks MD (05/17/2019 3:02 PM) [facility]
[2019-05-17 15:45] LABS: HEMATOCRIT 22.5 % (39.0-53.0); HEMOGLOBIN 7.5 g/dL (13.0-17.5); RED BLOOD COUNT 2.8 x10^6/uL (4.30-5.70); RED CELL DISTRIBUTION WIDTH 16.1 % (11.5-14.5); WHITE BLOOD COUNT 3.1 x10^3/uL (4.0-11.0)
[2019-05-17 17:34] LABS: PROTHROMBIN TIME PATIENT 16.1 SEC (11.7-14.0)
[2019-05-17] MEDS: INSULIN GLARGINE SYRINGE. SQ SCH (21:00)
[2019-05-17] MEDS ORDERED: diphenhydrAMINE 50 MG/ML VIAL IVP PRN (21:00)
[2019-05-17] MEDS: ATORVASTATIN CALCIUM 40 MG TABLET. PO SCH (21:25)
[2019-05-18 03:01] VITALS: BP 113/76
[2019-05-18 07:00] VITALS: BP 110/53
[2019-05-18] MEDS ORDERED: IV RINGERS,LACTATED 1000ML 1,000 ML IV ONE (07:00)
[2019-05-18] MEDS: PANTOPRAZOLE 40 MG TABLET.DR. PO SCH (07:30)
[2019-05-18] MEDS: INSULIN LISPRO 300 UNITS/3 ML VIAL. SQ SCH ×4 (07:30→21:00)
[2019-05-18] MEDS ORDERED: OMEG1CAP2 PO (08:03)
--- NOTE | 2019-05-18 08:04 | PDOC ---
PROGRESS NOTES Chief Complaint Chief Complaint A/P: Acute GI bleed - acute blood loss anemia - will type and screen, H&H q 8, will transfuse 2 units if his Hb drops below 7. Already down to 7.6 from 9.1 last night. GI consulted, will get tagged RBC scan Cirrhosis with varices - NAFLD per history [EGD and colonoscopy by Dr. Rufino Yepez on 10/04/18 for RUPAL showed grade II esophageal varices, normal stomach, normal [id number] sessile polyp in distal descending colon, and 5mm sessile polyp in distal sigmoid colon. EGD by Dr. Rufino Yepez on 04/04/19 showed grade II esophageal varices (unchanged, nonbleeding) and gastritis. Recommendations to repeat EGD in 6 months, increase propranolol to 40mg BID, and to consider prophylactic banding w/ varices unchanged w/ increased medication. S/p cholecystectomy in 08/2018 (Dr. Barrera) for symptomatic cholelithiasis - cirrhosis noted intraoperatively.] Hypertriglyceridemia - previously on fenofibrate, now on insulin, advised prescription fish oil DM2 - hold metformin, may need contrast to assess bleed. Basal bolus plus in house Obesity - counseled on weight loss CAD w/ stents - hold ASA for GI bleed, cont propranolol HTN - hold losartan for lower BP HLD - cont meds BPH - cont meds GERD - IV PPI FEN - NPO PPX - IV PPI FULL CODE Dispo - inpatient for acute blood loss anemia History of Present Illness History of Present Illness Mr Tucker is a 53yo M w/ PMHx hypertriglyceridemia, DM2, Obesity, CAD w/ stents, HTN, HLD, BPH, GERD, cirrhosis w/ esophageal varices, RUPAL, colon polyps who presents with dark tarry and bright red blood in his stool. Has occurred about every 2 hours since. Reports h/o cirrhosis 2/2 [place] and esophageal varices - previously evaluated at [facility] and [facility]/transplant. Some nausea w/o vomiting. Doesn't feel hungry but would like water. No dysphagia. H/o GERD (denies heartburn/reflux) on pantoprazole QD. No abd pain. Denies diarrhea and constipation. No weight loss. [facility] records shown to be on his [facility] mayela - neg Hepatitis panel, MELA, AMA, HFE, and normal alpha 1 antitrypsin. Also says was seen at [facility] on Thursday for chest pain - says was given ASA and PE was ruled out last week. Has had EGD twice in the past year, states he has grade II varices. No transfusions, but has had iron IV previously. Denies CP and SOB currently, just feels nausea and fatigue. Had 2 large bloody BM yesterday. Nuclear bleed scan negative for active bleeding. Plan for EGD this morning. Hb 7.1 this morning, down from 7.5. Still with some abdominal cramping and nausea. He has not vomited, but does feels some epigastric fullness. Vitals Vitals Vital Signs Date Time Temp Pulse Resp B/P (MAP) Pulse Ox O2 Delivery O2 Flow Rate FiO2 05/18/19 03:01 98.5 64 18 113/76 (88) 98 Room Air 98.5 Physical Exam General: Alert, Oriented X3, Cooperative, No acute distress Abdomen: Normal bowel sounds, Soft, Other (epigastric tenderness, spleen palpable) Extremities: No clubbing, No cyanosis, No edema, Normal pulses, No tenderness/swelling Skin: No rashes, No breakdown, No significant lesion Labs LABS Laboratory Tests Test 05/17/19 08:05 05/17/19 10:40 05/17/19 15:30 05/17/19 16:39 White Blood Count 3.1 x10^3/uL (4.0-11.0) 3.1 x10^3/uL (4.0-11.0) Red Blood Count 2.83 x10^6/uL (4.30-5.70) 2.80 x10^6/uL (4.30-5.70) Hemoglobin 7.6 g/dL (13.0-17.5) 7.5 g/dL (13.0-17.5) Hematocrit 22.7 % (39.0-53.0) 22.5 % (39.0-53.0) Mean Corpuscular Volume 80 fL (79-100) 80 fL (79-100) Mean Corpuscular Hemoglobin 27 pg (25-35) 27 pg (25-35) Mean Corpuscular Hemoglobin Concent 33 g/dL (31-37) 34 g/dL (31-37) Red Cell Distribution Width 16.0 % (11.5-14.5) 16.1 % (11.5-14.5) Platelet Count 49 x10^3/uL (140-400) 52 x10^3/uL (140-400) Neutrophils (%) (Auto) 71 % (31-73) Lymphocytes (%) (Auto) 16 % (24-48) Monocytes (%) (Auto) 9 % (0-9) Eosinophils (%) (Auto) 3 % (0-3) Basophils (%) (Auto) 0 % (0-3) Neutrophils # (Auto) 2.2 x10^3/uL (1.8-7.7) Lymphocytes # (Auto) 0.5 x10^3/uL (1.0-4.8) Monocytes # (Auto) 0.3 x10^3/uL (0.0-1.1) Eosinophils # (Auto) 0.1 x10^3/uL (0.0-0.7) Basophils # (Auto) 0.0 x10^3/uL (0.0-0.2) Prothrombin Time 16.1 SEC (11.7-14.0) Prothromb Time International Ratio 1.3 (0.8-1.1) Sodium Level 141 mmol/L (136-145) Potassium Level 4.0 mmol/L (3.5-5.1) Chloride Level 108 mmol/L (98-107) Carbon Dioxide Level 25 mmol/L (21-32) Anion Gap 8 (6-14) Blood Urea Nitrogen 18 mg/dL (8-26) Creatinine 0.7 mg/dL (0.7-1.3) Estimated GFR (Cockcroft-Gault) 117.1 BUN/Creatinine Ratio 26 (6-20) Glucose Level 198 mg/dL (70-99) Calcium Level 8.3 mg/dL (8.5-10.1) Magnesium Level 1.9 mg/dL (1.8-2.4) Total Bilirubin 1.1 mg/dL (0.2-1.0) Aspartate Amino Transf (AST/SGOT) 59 U/L (15-37) Alanine Aminotransferase (ALT/SGPT) 62 U/L (16-63) Alkaline Phosphatase 102 U/L (46-116) Total Protein 6.3 g/dL (6.4-8.2) Albumin 2.7 g/dL (3.4-5.0) Albumin/Globulin Ratio 0.8 (1.0-1.7) Glucose (Fingerstick) 183 mg/dL (70-99) 162 mg/dL (70-99) Test 05/17/19 21:03 Glucose (Fingerstick) 117 mg/dL (70-99) Assessment and Plan Assessmemt and Plan Problems Medical Problems: (1) Hypomagnesemia Status: Acute (2) Rectal bleeding Status: Acute (3) Transaminitis Status: Acute Comment Review of Relevant I have reviewed the following items navid (where applicable) has been applied. Labs Laboratory Tests Test 05/16/19 17:20 05/16/19 18:08 05/16/19 19:15 05/17/19 02:02 Stool Occult Blood Positive (NEG) White Blood Count 3.2 x10^3/uL (4.0-11.0) Red Blood Count 3.27 x10^6/uL (4.30-5.70) Hemoglobin 9.1 g/dL (13.0-17.5) Hematocrit 26.3 % (39.0-53.0) Mean Corpuscular Volume 81 fL (79-100) Mean Corpuscular Hemoglobin 28 pg (25-35) Mean Corpuscular Hemoglobin Concent 35 g/dL (31-37) Red Cell Distribution Width 15.6 % (11.5-14.5) Platelet Count 54 x10^3/uL (140-400) Neutrophils (%) (Auto) 70 % (31-73) Lymphocytes (%) (Auto) 15 % (24-48) Monocytes (%) (Auto) 11 % (0-9) Eosinophils (%) (Auto) 3 % (0-3) Basophils (%) (Auto) 1 % (0-3) Neutrophils # (Auto) 2.2 x10^3/uL (1.8-7.7) Lymphocytes # (Auto) 0.5 x10^3/uL (1.0-4.8) Monocytes # (Auto) 0.4 x10^3/uL (0.0-1.1) Eosinophils # (Auto) 0.1 x10^3/uL (0.0-0.7) Basophils # (Auto) 0.0 x10^3/uL (0.0-0.2) Sodium Level 142 mmol/L (136-145) Potassium Level 4.1 mmol/L (3.5-5.1) Chloride Level 107 mmol/L (98-107) Carbon Dioxide Level 28 mmol/L (21-32) Anion Gap 7 (6-14) Blood Urea Nitrogen 16 mg/dL (8-26) Creatinine 0.9 mg/dL (0.7-1.3) Estimated GFR (Cockcroft-Gault) 87.6 BUN/Creatinine Ratio 18 (6-20) Glucose Level 270 mg/dL (70-99) Calcium Level 8.1 mg/dL (8.5-10.1) Magnesium Level 1.5 mg/dL (1.8-2.4) Total Bilirubin 1.3 mg/dL (0.2-1.0) Aspartate Amino Transf (AST/SGOT) 83 U/L (15-37) Alanine Aminotransferase (ALT/SGPT) 83 U/L (16-63) Alkaline Phosphatase 133 U/L (46-116) Creatine Kinase 240 U/L (39-308) Creatine Kinase MB (Mass) 4.3 ng/mL (0.0-3.6) Creatine Kinase MB Relative Index 1.8 % (0-4) Troponin I Quantitative < 0.017 ng/mL (0.000-0.055) LH-Wkm-K-Type Natriuretic Peptide 131 pg/mL (0-124) Total Protein 6.6 g/dL (6.4-8.2) Albumin 3.0 g/dL (3.4-5.0) Albumin/Globulin Ratio 0.8 (1.0-1.7) Lipase 106 U/L (73-393) Urine Collection Type Unknown Urine Color Yellow Urine Clarity Clear Urine pH 6.5 Urine Specific [place] 1.025 Urine Protein Negative mg/dL (NEG-TRACE) Urine Glucose (UA) >=1000 mg/dL (NEG) Urine Ketones (Stick) Negative mg/dL (NEG) Urine Blood Negative (NEG) Urine Nitrite Negative (NEG) Urine Bilirubin Negative (NEG) Urine Urobilinogen Dipstick 1.0 mg/dL (0.2 mg/dL) Urine Leukocyte Esterase Negative (NEG) Urine RBC 0 /HPF (0-2) Urine WBC Occ /HPF (0-4) Urine Squamous Epithelial Cells Mod /LPF Urine Bacteria 0 /HPF (0-FEW) Urine Mucus Slight /LPF Urine Opiates Screen Neg (NEG) Urine Methadone Screen Neg (NEG) Urine Barbiturates Neg (NEG) Urine Phencyclidine Screen Neg (NEG) Urine Amphetamine/Methamphetamine Neg (NEG) Urine Benzodiazepines Screen Neg (NEG) Urine Cocaine Screen Neg (NEG) Urine Cannabinoids Screen Neg (NEG) Urine Ethyl Alcohol Neg (NEG) Glucose (Fingerstick) 190 mg/dL (70-99) Test 05/17/19 08:03 05/17/19 08:05 05/17/19 10:40 05/17/19 15:30 Glucose (Fingerstick) 185 mg/dL (70-99) 183 mg/dL (70-99) White Blood Count 3.1 x10^3/uL (4.0-11.0) 3.1 x10^3/uL (4.0-11.0) Red Blood Count 2.83 x10^6/uL (4.30-5.70) 2.80 x10^6/uL (4.30-5.70) Hemoglobin 7.6 g/dL (13.0-17.5) 7.5 g/dL (13.0-17.5) Hematocrit 22.7 % (39.0-53.0) 22.5 % (39.0-53.0) Mean Corpuscular Volume 80 fL (79-100) 80 fL (79-100) Mean Corpuscular Hemoglobin 27 pg (25-35) 27 pg (25-35) Mean Corpuscular Hemoglobin Concent 33 g/dL (31-37) 34 g/dL (31-37) Red Cell Distribution Width 16.0 % (11.5-14.5) 16.1 % (11.5-14.5) Platelet Count 49 x10^3/uL (140-400) 52 x10^3/uL (140-400) Neutrophils (%) (Auto) 71 % (31-73) Lymphocytes (%) (Auto) 16 % (24-48) Monocytes (%) (Auto) 9 % (0-9) Eosinophils (%) (Auto) 3 % (0-3) Basophils (%) (Auto) 0 % (0-3) Neutrophils # (Auto) 2.2 x10^3/uL (1.8-7.7) Lymphocytes # (Auto) 0.5 x10^3/uL (1.0-4.8) Monocytes # (Auto) 0.3 x10^3/uL (0.0-1.1) Eosinophils # (Auto) 0.1 x10^3/uL (0.0-0.7) Basophils # (Auto) 0.0 x10^3/uL (0.0-0.2) Prothrombin Time 16.1 SEC (11.7-14.0) Prothromb Time International Ratio 1.3 (0.8-1.1) Sodium Level 141 mmol/L (136-145) Potassium Level 4.0 mmol/L (3.5-5.1) Chloride Level 108 mmol/L (98-107) Carbon Dioxide Level 25 mmol/L (21-32) Anion Gap 8 (6-14) Blood Urea Nitrogen 18 mg/dL (8-26) Creatinine 0.7 mg/dL (0.7-1.3) Estimated GFR (Cockcroft-Gault) 117.1 BUN/Creatinine Ratio 26 (6-20) Glucose Level 198 mg/dL (70-99) Calcium Level 8.3 mg/dL (8.5-10.1) Magnesium Level 1.9 mg/dL (1.8-2.4) Total Bilirubin 1.1 mg/dL (0.2-1.0) Aspartate Amino Transf (AST/SGOT) 59 U/L (15-37) Alanine Aminotransferase (ALT/SGPT) 62 U/L (16-63) Alkaline Phosphatase 102 U/L (46-116) Total Protein 6.3 g/dL (6.4-8.2) Albumin 2.7 g/dL (3.4-5.0) Albumin/Globulin Ratio 0.8 (1.0-1.7) Test 05/17/19 16:39 05/17/19 21:03 Glucose (Fingerstick) 162 mg/dL (70-99) 117 mg/dL (70-99) Laboratory Tests Test 05/17/19 08:05 05/17/19 10:40 05/17/19 15:30 05/17/19 16:39 White Blood Count 3.1 x10^3/uL (4.0-11.0) 3.1 x10^3/uL (4.0-11.0) Red Blood Count 2.83 x10^6/uL (4.30-5.70) 2.80 x10^6/uL (4.30-5.70) Hemoglobin 7.6 g/dL (13.0-17.5) 7.5 g/dL (13.0-17.5) Hematocrit 22.7 % (39.0-53.0) 22.5 % (39.0-53.0) Mean Corpuscular Volume 80 fL (79-100) 80 fL (79-100) Mean Corpuscular Hemoglobin 27 pg (25-35) 27 pg (25-35) Mean Corpuscular Hemoglobin Concent 33 g/dL (31-37) 34 g/dL (31-37) Red Cell Distribution Width 16.0 % (11.5-14.5) 16.1 % (11.5-14.5) Platelet Count 49 x10^3/uL (140-400) 52 x10^3/uL (140-400) Neutrophils (%) (Auto) 71 % (31-73) Lymphocytes (%) (Auto) 16 % (24-48) Monocytes (%) (Auto) 9 % (0-9) Eosinophils (%) (Auto) 3 % (0-3) Basophils (%) (Auto) 0 % (0-3) Neutrophils # (Auto) 2.2 x10^3/uL (1.8-7.7) Lymphocytes # (Auto) 0.5 x10^3/uL (1.0-4.8) Monocytes # (Auto) 0.3 x10^3/uL (0.0-1.1) Eosinophils # (Auto) 0.1 x10^3/uL (0.0-0.7) Basophils # (Auto) 0.0 x10^3/uL (0.0-0.2) Prothrombin Time 16.1 SEC (11.7-14.0) Prothromb Time International Ratio 1.3 (0.8-1.1) Sodium Level 141 mmol/L (136-145) Potassium Level 4.0 mmol/L (3.5-5.1) Chloride Level 108 mmol/L (98-107) Carbon Dioxide Level 25 mmol/L (21-32) Anion Gap 8 (6-14) Blood Urea Nitrogen 18 mg/dL (8-26) Creatinine 0.7 mg/dL (0.7-1.3) Estimated GFR (Cockcroft-Gault) 117.1 BUN/Creatinine Ratio 26 (6-20) Glucose Level 198 mg/dL (70-99) Calcium Level 8.3 mg/dL (8.5-10.1) Magnesium Level 1.9 mg/dL (1.8-2.4) Total Bilirubin 1.1 mg/dL (0.2-1.0) Aspartate Amino Transf (AST/SGOT) 59 U/L (15-37) Alanine Aminotransferase (ALT/SGPT) 62 U/L (16-63) Alkaline Phosphatase 102 U/L (46-116) Total Protein 6.3 g/dL (6.4-8.2) Albumin 2.7 g/dL (3.4-5.0) Albumin/Globulin Ratio 0.8 (1.0-1.7) Glucose (Fingerstick) 183 mg/dL (70-99) 162 mg/dL (70-99) Test 05/17/19 21:03 Glucose (Fingerstick) 117 mg/dL (70-99) Medications Current Medications Pantoprazole Sodium (PROTONIX VIAL for IV PUSH) 40 mg 1X ONCE IVP Last administered on 05/16/19at 18:04; Start 05/16/19 at 17:45; Stop 05/16/19 at 17:46; Status DC Sodium Chloride 1,000 ml @ 1,000 mls/hr 1X ONCE IV Last administered on 05/16/19at 18:04; Start 05/16/19 at 17:45; Stop 05/16/19 at 18:44; Status DC Iohexol (Omnipaque 300 Mg/ml) 75 ml 1X ONCE IV Last administered on 05/16/19at 19:43; Start 05/16/19 at 19:00; Stop 05/16/19 at 19:01; Status DC Info (CONTRAST GIVEN -- Rx MONITORING) 1 each PRN DAILY PRN MC SEE COMMENTS; Start 05/16/19 at 19:00; Stop 05/18/19 at 18:59 Magnesium Sulfate/ Dextrose 100 ml @ 100 mls/hr 1X ONCE IV Last administered on 05/16/19at 20:02; Start 05/16/19 at 19:30; Stop 05/16/19 at 20:29; Status DC Ondansetron HCl (Zofran) 4 mg PRN Q8HRS PRN IV NAUSEA/VOMITING 1ST CHOICE Last administered on 05/17/19at 02:10; Start 05/16/19 at 22:45; Stop 05/17/19 at 09:13; Status DC Morphine Sulfate (Morphine Sulfate) 4 mg PRN Q2HR PRN IV SEVERE PAIN 7-10; Start 05/16/19 at 22:45; Stop 05/17/19 at 22:44; Status DC Pantoprazole Sodium 80 mg/ Sodium Chloride 100 ml @ 10 mls/hr Q10H IV Last administered on 05/17/19at 18:21; Start 05/16/19 at 23:00; Stop 05/17/19 at 22:59; Status DC Sodium Chloride 1,000 ml @ 75 mls/hr 1X ONCE IV Last administered on 05/16/19at 23:53; Start 05/16/19 at 23:00; Stop 05/17/19 at 12:19; Status DC Magnesium Sulfate 50 ml @ 25 mls/hr 1X ONCE IV Last administered on 05/16/19at 23:53; Start 05/16/19 at 23:00; Stop 05/17/19 at 00:59; Status DC Propranolol HCl (Inderal) 40 mg BID PO Last administered on 05/17/19at 21:25; Start 05/17/19 at 09:00 Insulin Glargine (Lantus Syringe) 58 unit QHS SQ ; Start 05/17/19 at 21:00 Losartan Potassium (Cozaar) 50 mg DAILY PO ; Start 05/17/19 at 09:00 Pantoprazole Sodium (Protonix) 40 mg DAILYAC PO ; Start 05/18/19 at 07:30 Atorvastatin Calcium (Lipitor) 80 mg QHS PO Last administered on 05/17/19at 21:25; Start 05/17/19 at 21:00 Insulin Human Lispro (HumaLOG) 0-7 UNITS TIDACHC SQ ; Start 05/17/19 at 11:30 Dextrose (Dextrose 50%-Water Syringe) 12.5 gm PRN Q15MIN PRN IV SEE COMMENTS; Start 05/17/19 at 08:15 Dextrose 250 ml PRN Q15MIN PRN IV SEE COMMENTS; Start 05/17/19 at 08:15 Ondansetron HCl (Zofran) 4 mg PRN Q6HRS PRN IV NAUSEA/VOMITING 1ST CHOICE Last administered on 05/17/19at 09:54; Start 05/17/19 at 09:15 Prochlorperazine Edisylate (Compazine) 5 mg PRN Q6HRS PRN IV NAUSEA/VOMITING; Start 05/17/19 at 10:15 Heparin Sodium (Porcine) (HEPARIN for NUC MED) 100 unit 1X ONCE IV Last administered on 05/17/19at 14:57; Start 05/17/19 at 12:45; Stop 05/17/19 at 12:46; Status DC Diphenhydramine HCl (Benadryl) 50 mg PRN Q6HRS PRN IVP sleep aid Last administered on 05/17/19at 21:25; Start 05/17/19 at 21:00 Ringer's Solution 1,000 ml @ 75 mls/hr 1X ONCE IV ; Start 05/18/19 at 07:00; Stop 05/18/19 at 20:19 Active Scripts Active Reported Irbesartan 300 Mg Tablet 150 Mg PO DAILY Tresiba (Insulin Degludec) 100 Unit/1 Ml Vial 116 Unit SQ HS Novolog (Insulin Aspart) 100 Unit/1 Ml Cartridge 35 Unit SQ WITH BREAKFAST Propranolol Hcl 40 Mg Tablet 1 Tab PO BID Crestor (Rosuvastatin Calcium) 20 Mg Tablet 1 Tab PO DAILY Protonix (Pantoprazole Sodium) 20 Mg Tablet. 1 Tab PO DAILY Metformin Hcl 1,000 Mg Tablet 1,000 Mg PO BIDWMEALS Vitals/I & O Vital Sign - Last 24 Hours 05/17/19 05/17/19 05/17/19 05/17/19 09:54 09:54 11:05 15:12 Temp 98.0 98.1 98.0 98.1 Pulse 76 76 67 65 Resp 18 18 B/P (MAP) 126/63 126/63 132/55 (80) 126/57 (80) Pulse Ox 98 98 O2 Delivery Room Air Room Air 05/17/19 05/17/19 05/17/19 05/17/19 19:30 20:00 21:25 23:33 Temp 98.8 98.6 98.8 98.6 Pulse 67 67 62 Resp 18 18 B/P (MAP) 111/59 (76) 111/59 114/73 (87) Pulse Ox 98 98 O2 Delivery Room Air Room Air Room Air 05/18/19 03:01 Temp 98.5 98.5 Pulse 64 Resp 18 B/P (MAP) 113/76 (88) Pulse Ox 98 O2 Delivery Room Air Intake and Output 05/17/19 05/17/19 05/18/19 14:59 22:59 06:59 Intake Total 0 ml 0 ml Balance 0 ml 0 ml JODI CAMPBELL MD May 18, 2019 08:04
[2019-05-18 08:56] LABS: HEMATOCRIT 21.7 % (39.0-53.0); HEMOGLOBIN 7.1 g/dL (13.0-17.5); RED BLOOD COUNT 2.67 x10^6/uL (4.30-5.70); RED CELL DISTRIBUTION WIDTH 16.4 % (11.5-14.5); WHITE BLOOD COUNT 2.2 x10^3/uL (4.0-11.0)
[2019-05-18] MEDS: PROPRANOLOL 40 MG TABLET. PO SCH ×2 (09:00→20:16)
[2019-05-18] MEDS: LOSARTAN POTASSIUM 50 MG TABLET. PO SCH (09:00)
[2019-05-18 09:01] LABS: CALCIUM 7.8 mg/dL (8.5-10.1); CREATININE 0.8 mg/dL (0.7-1.3); GFR 100.4; POTASSIUM 3.9 mmol/L (3.5-5.1)
[2019-05-18 09:18] LABS: CHOLESTEROL/HDL RATIO 4.8
[2019-05-18] MEDS ORDERED: PROPOFOL 20 ML IV ONE (10:12)
--- NOTE | 2019-05-18 10:36 | PDOC4 ---
PROCEDURE Procedure EGD Indication: GI bleeding, source uncertain. H/o esophageal varices. Meds: per anesthesia Findings: E--Grade III varices distal half w/o signs of active or recent bleeding. Grade A or less esophagitis at 43cm. G--One AVM seen in body, not bleeding. No blood or hematin in stomach (though says ongoing bloody stools). No gastric varices. D--Normal to second portion. [place]. well. IMP: Non-bleeding esophageal varices. Mild GERD Gastric AVM, not bleeding. Not treated given thrombocytopenia and not seeming source of current issue. REC: Meckel's scan Continue PPI, po. Clears. If negative Meckel's, may need to consider colonoscopy. KALLI CORONADO MD May 18, 2019 10:36
[2019-05-18 11:45] VITALS: BP 135/52
[2019-05-18 15:00] VITALS: BP 129/69
[2019-05-18 17:02] LABS: HEMATOCRIT 21.5 % (39.0-53.0); HEMOGLOBIN 7.1 g/dL (13.0-17.5); RED BLOOD COUNT 2.66 x10^6/uL (4.30-5.70); WHITE BLOOD COUNT 2.3 x10^3/uL (4.0-11.0)
[2019-05-18 19:00] VITALS: BP 107/60
[2019-05-18] MEDS: ATORVASTATIN CALCIUM 40 MG TABLET. PO SCH (20:15)
[2019-05-18] MEDS ORDERED: ZOLPIDEM 5 MG TABLET. PO PRN (20:45)
[2019-05-18] MEDS: INSULIN GLARGINE SYRINGE. SQ SCH (21:50)
[2019-05-18 23:00] VITALS: BP 98/47
[2019-05-19 03:00] VITALS: BP 115/53
[2019-05-19 07:00] VITALS: BP 120/56
[2019-05-19] MEDS: PANTOPRAZOLE 40 MG TABLET.DR. PO SCH (07:13)
[2019-05-19] MEDS: INSULIN LISPRO 300 UNITS/3 ML VIAL. SQ SCH ×4 (07:30→21:00)
[2019-05-19 07:41] LABS: BASO % 1 % (0-3); EOS # 0.1 x10^3/uL (0.0-0.7); EOS % 4 % (0-3); HEMATOCRIT 21.6 % (39.0-53.0); HEMOGLOBIN 7.1 g/dL (13.0-17.5); LYMPH # 0.4 x10^3/uL (1.0-4.8); LYMPH % 17 % (24-48); MEAN CORPUSCULAR HEMOGLOBIN 27 pg (25-35); MEAN CORPUSCULAR HGB CONC 33 g/dL (31-37); MEAN CORPUSCULAR VOLUME 81 fL (79-100); MONO # 0.3 x10^3/uL (0.0-1.1); MONO % 13 % (0-9); NEUT # 1.5 x10^3/uL (1.8-7.7); NEUT % 66 % (31-73); PLATELET COUNT 46 x10^3/uL (140-400); RED BLOOD COUNT 2.67 x10^6/uL (4.30-5.70); WHITE BLOOD COUNT 2.2 x10^3/uL (4.0-11.0)
--- NOTE | 2019-05-19 09:09 | PDOC ---
PROGRESS NOTES Chief Complaint Chief Complaint A/P: Acute GI bleed - acute blood loss anemia - will type and screen, H&H q 8, will transfuse 2 units if his Hb drops below 7. Already down to 7.6 from 9.1 last night. GI consulted, will get tagged RBC scan Cirrhosis with varices - NAFLD per history [EGD and colonoscopy by Dr. Rufino Yepez on 10/04/18 for RUPAL showed grade II esophageal varices, normal stomach, normal [id number] sessile polyp in distal descending colon, and 5mm sessile polyp in distal sigmoid colon. EGD by Dr. Rufino Yepez on 04/04/19 showed grade II esophageal varices (unchanged, nonbleeding) and gastritis. Recommendations to repeat EGD in 6 months, increase propranolol to 40mg BID, and to consider prophylactic banding w/ varices unchanged w/ increased medication. S/p cholecystectomy in 08/2018 (Dr. Barrera) for symptomatic cholelithiasis - cirrhosis noted intraoperatively.] Hypertriglyceridemia - previously on fenofibrate, now on insulin, advised prescription fish oil DM2 - hold metformin, may need contrast to assess bleed. Basal bolus plus in house Obesity - counseled on weight loss CAD w/ stents - hold ASA for GI bleed, cont propranolol HTN - hold losartan for lower BP HLD - cont meds BPH - cont meds GERD - IV PPI FEN - NPO PPX - IV PPI FULL CODE Dispo - inpatient for acute blood loss anemia History of Present Illness History of Present Illness Mr Tucker is a 53yo M w/ PMHx hypertriglyceridemia, DM2, Obesity, CAD w/ stents, HTN, HLD, BPH, GERD, cirrhosis w/ esophageal varices, RUPAL, colon polyps who presents with dark tarry and bright red blood in his stool. Has occurred about every 2 hours since. Reports h/o cirrhosis 2/2 [place] and esophageal varices - previously evaluated at [facility] and [facility]/transplant. Some nausea w/o vomiting. Doesn't feel hungry but would like water. No dysphagia. H/o GERD (denies heartburn/reflux) on pantoprazole QD. No abd pain. Denies diarrhea and constipation. No weight loss. [facility] records shown to be on his Returbohart mayela - neg Hepatitis panel, MELA, AMA, HFE, and normal alpha 1 antitrypsin. Also says was seen at [facility] on Thursday for chest pain - sayearnest was given ASA and PE was ruled out last week. Has had EGD twice in the past year, states he has grade II varices. No transfusions, but has had iron IV previously. Denies CP and SOB currently, just feels nausea and fatigue. Had 2 large bloody BM. Nuclear bleed scan negative for active bleeding. Neg EGD 05/18. Hb 7.1 this morning, down from 7.5. Still with some abdominal cramping and nausea. He has not vomited, but does feels some epigastric fullness. He is very hungry, anxious about meckels scan later today and wishes to leave soon. Vitals Vitals Vital Signs Date Time Temp Pulse Resp B/P (MAP) Pulse Ox O2 Delivery O2 Flow Rate FiO2 05/19/19 07:00 98.1 68 20 120/56 (77) 100 Room Air 98.1 05/18/19 10:45 3 Physical Exam General: Alert, Oriented X3, Cooperative, No acute distress Abdomen: Normal bowel sounds, Soft, Other (epigastric tenderness, spleen palpable) Extremities: No clubbing, No cyanosis, No edema, Normal pulses, No tenderness/swelling Skin: No rashes, No breakdown, No significant lesion Labs LABS Laboratory Tests Test 05/18/19 11:40 05/18/19 16:55 05/18/19 17:07 05/18/19 20:24 Glucose (Fingerstick) 104 mg/dL (70-99) 175 mg/dL (70-99) 173 mg/dL (70-99) White Blood Count 2.3 x10^3/uL (4.0-11.0) Red Blood Count 2.66 x10^6/uL (4.30-5.70) Hemoglobin 7.1 g/dL (13.0-17.5) Hematocrit 21.5 % (39.0-53.0) Mean Corpuscular Volume 81 fL (79-100) Mean Corpuscular Hemoglobin 27 pg (25-35) Mean Corpuscular Hemoglobin Concent 33 g/dL (31-37) Red Cell Distribution Width 16.0 % (11.5-14.5) Platelet Count 46 x10^3/uL (140-400) Test 05/19/19 05:22 05/19/19 07:33 White Blood Count 2.2 x10^3/uL (4.0-11.0) Red Blood Count 2.67 x10^6/uL (4.30-5.70) Hemoglobin 7.1 g/dL (13.0-17.5) Hematocrit 21.6 % (39.0-53.0) Mean Corpuscular Volume 81 fL (79-100) Mean Corpuscular Hemoglobin 27 pg (25-35) Mean Corpuscular Hemoglobin Concent 33 g/dL (31-37) Red Cell Distribution Width 16.0 % (11.5-14.5) Platelet Count 46 x10^3/uL (140-400) Neutrophils (%) (Auto) 66 % (31-73) Lymphocytes (%) (Auto) 17 % (24-48) Monocytes (%) (Auto) 13 % (0-9) Eosinophils (%) (Auto) 4 % (0-3) Basophils (%) (Auto) 1 % (0-3) Neutrophils # (Auto) 1.5 x10^3/uL (1.8-7.7) Lymphocytes # (Auto) 0.4 x10^3/uL (1.0-4.8) Monocytes # (Auto) 0.3 x10^3/uL (0.0-1.1) Eosinophils # (Auto) 0.1 x10^3/uL (0.0-0.7) Basophils # (Auto) 0.0 x10^3/uL (0.0-0.2) Glucose (Fingerstick) 114 mg/dL (70-99) Assessment and Plan Assessmemt and Plan Problems Medical Problems: (1) Hypomagnesemia Status: Acute (2) Rectal bleeding Status: Acute (3) Transaminitis Status: Acute Comment Review of Relevant I have reviewed the following items navid (where applicable) has been applied. Labs Laboratory Tests Test 05/17/19 10:40 05/17/19 15:30 05/17/19 16:39 05/17/19 21:03 Glucose (Fingerstick) 183 mg/dL (70-99) 162 mg/dL (70-99) 117 mg/dL (70-99) White Blood Count 3.1 x10^3/uL (4.0-11.0) Red Blood Count 2.80 x10^6/uL (4.30-5.70) Hemoglobin 7.5 g/dL (13.0-17.5) Hematocrit 22.5 % (39.0-53.0) Mean Corpuscular Volume 80 fL (79-100) Mean Corpuscular Hemoglobin 27 pg (25-35) Mean Corpuscular Hemoglobin Concent 34 g/dL (31-37) Red Cell Distribution Width 16.1 % (11.5-14.5) Platelet Count 52 x10^3/uL (140-400) Test 05/18/19 08:08 05/18/19 08:30 05/18/19 11:40 05/18/19 16:55 Glucose (Fingerstick) 98 mg/dL (70-99) 104 mg/dL (70-99) White Blood Count 2.2 x10^3/uL (4.0-11.0) 2.3 x10^3/uL (4.0-11.0) Red Blood Count 2.67 x10^6/uL (4.30-5.70) 2.66 x10^6/uL (4.30-5.70) Hemoglobin 7.1 g/dL (13.0-17.5) 7.1 g/dL (13.0-17.5) Hematocrit 21.7 % (39.0-53.0) 21.5 % (39.0-53.0) Mean Corpuscular Volume 81 fL (79-100) 81 fL (79-100) Mean Corpuscular Hemoglobin 27 pg (25-35) 27 pg (25-35) Mean Corpuscular Hemoglobin Concent 33 g/dL (31-37) 33 g/dL (31-37) Red Cell Distribution Width 16.4 % (11.5-14.5) 16.0 % (11.5-14.5) Platelet Count 43 x10^3/uL (140-400) 46 x10^3/uL (140-400) Sodium Level 141 mmol/L (136-145) Potassium Level 3.9 mmol/L (3.5-5.1) Chloride Level 107 mmol/L (98-107) Carbon Dioxide Level 27 mmol/L (21-32) Anion Gap 7 (6-14) Blood Urea Nitrogen 19 mg/dL (8-26) Creatinine 0.8 mg/dL (0.7-1.3) Estimated GFR (Cockcroft-Gault) 100.4 Glucose Level 105 mg/dL (70-99) Calcium Level 7.8 mg/dL (8.5-10.1) Triglycerides Level 205 mg/dL (0-150) Cholesterol Level 111 mg/dL (0-200) LDL Cholesterol, Calculated 47 mg/dL (0-100) VLDL Cholesterol, Calculated 41 mg/dL (0-40) Non-HDL Cholesterol Calculated 88 mg/dL (0-129) HDL Cholesterol 23 mg/dL (40-60) Cholesterol/HDL Ratio 4.8 Test 05/18/19 17:07 05/18/19 20:24 05/19/19 05:22 05/19/19 07:33 Glucose (Fingerstick) 175 mg/dL (70-99) 173 mg/dL (70-99) 114 mg/dL (70-99) White Blood Count 2.2 x10^3/uL (4.0-11.0) Red Blood Count 2.67 x10^6/uL (4.30-5.70) Hemoglobin 7.1 g/dL (13.0-17.5) Hematocrit 21.6 % (39.0-53.0) Mean Corpuscular Volume 81 fL (79-100) Mean Corpuscular Hemoglobin 27 pg (25-35) Mean Corpuscular Hemoglobin Concent 33 g/dL (31-37) Red Cell Distribution Width 16.0 % (11.5-14.5) Platelet Count 46 x10^3/uL (140-400) Neutrophils (%) (Auto) 66 % (31-73) Lymphocytes (%) (Auto) 17 % (24-48) Monocytes (%) (Auto) 13 % (0-9) Eosinophils (%) (Auto) 4 % (0-3) Basophils (%) (Auto) 1 % (0-3) Neutrophils # (Auto) 1.5 x10^3/uL (1.8-7.7) Lymphocytes # (Auto) 0.4 x10^3/uL (1.0-4.8) Monocytes # (Auto) 0.3 x10^3/uL (0.0-1.1) Eosinophils # (Auto) 0.1 x10^3/uL (0.0-0.7) Basophils # (Auto) 0.0 x10^3/uL (0.0-0.2) Laboratory Tests Test 05/18/19 11:40 05/18/19 16:55 05/18/19 17:07 05/18/19 20:24 Glucose (Fingerstick) 104 mg/dL (70-99) 175 mg/dL (70-99) 173 mg/dL (70-99) White Blood Count 2.3 x10^3/uL (4.0-11.0) Red Blood Count 2.66 x10^6/uL (4.30-5.70) Hemoglobin 7.1 g/dL (13.0-17.5) Hematocrit 21.5 % (39.0-53.0) Mean Corpuscular Volume 81 fL (79-100) Mean Corpuscular Hemoglobin 27 pg (25-35) Mean Corpuscular Hemoglobin Concent 33 g/dL (31-37) Red Cell Distribution Width 16.0 % (11.5-14.5) Platelet Count 46 x10^3/uL (140-400) Test 05/19/19 05:22 05/19/19 07:33 White Blood Count 2.2 x10^3/uL (4.0-11.0) Red Blood Count 2.67 x10^6/uL (4.30-5.70) Hemoglobin 7.1 g/dL (13.0-17.5) Hematocrit 21.6 % (39.0-53.0) Mean Corpuscular Volume 81 fL (79-100) Mean Corpuscular Hemoglobin 27 pg (25-35) Mean Corpuscular Hemoglobin Concent 33 g/dL (31-37) Red Cell Distribution Width 16.0 % (11.5-14.5) Platelet Count 46 x10^3/uL (140-400) Neutrophils (%) (Auto) 66 % (31-73) Lymphocytes (%) (Auto) 17 % (24-48) Monocytes (%) (Auto) 13 % (0-9) Eosinophils (%) (Auto) 4 % (0-3) Basophils (%) (Auto) 1 % (0-3) Neutrophils # (Auto) 1.5 x10^3/uL (1.8-7.7) Lymphocytes # (Auto) 0.4 x10^3/uL (1.0-4.8) Monocytes # (Auto) 0.3 x10^3/uL (0.0-1.1) Eosinophils # (Auto) 0.1 x10^3/uL (0.0-0.7) Basophils # (Auto) 0.0 x10^3/uL (0.0-0.2) Glucose (Fingerstick) 114 mg/dL (70-99) Medications Current Medications Pantoprazole Sodium (PROTONIX VIAL for IV PUSH) 40 mg 1X ONCE IVP Last administered on 05/16/19at 18:04; Start 05/16/19 at 17:45; Stop 05/16/19 at 17:46; Status DC Sodium Chloride 1,000 ml @ 1,000 mls/hr 1X ONCE IV Last administered on 05/16/19at 18:04; Start 05/16/19 at 17:45; Stop 05/16/19 at 18:44; Status DC Iohexol (Omnipaque 300 Mg/ml) 75 ml 1X ONCE IV Last administered on 05/16/19at 19:43; Start 05/16/19 at 19:00; Stop 05/16/19 at 19:01; Status DC Info (CONTRAST GIVEN -- Rx MONITORING) 1 each PRN DAILY PRN MC SEE COMMENTS; Start 05/16/19 at 19:00; Stop 05/18/19 at 18:59; Status DC Magnesium Sulfate/ Dextrose 100 ml @ 100 mls/hr 1X ONCE IV Last administered on 05/16/19at 20:02; Start 05/16/19 at 19:30; Stop 05/16/19 at 20:29; Status DC Ondansetron HCl (Zofran) 4 mg PRN Q8HRS PRN IV NAUSEA/VOMITING 1ST CHOICE Last administered on 05/17/19at 02:10; Start 05/16/19 at 22:45; Stop 05/17/19 at 09:13; Status DC Morphine Sulfate (Morphine Sulfate) 4 mg PRN Q2HR PRN IV SEVERE PAIN 7-10; Start 05/16/19 at 22:45; Stop 05/17/19 at 22:44; Status DC Pantoprazole Sodium 80 mg/ Sodium Chloride 100 ml @ 10 mls/hr Q10H IV Last administered on 05/17/19 18:21; Start 05/16/19 at 23:00; Stop 05/17/19 at 22:59; Status DC Sodium Chloride 1,000 ml @ 75 mls/hr 1X ONCE IV Last administered on 05/16/19at 23:53; Start 05/16/19 at 23:00; Stop 05/17/19 at 12:19; Status DC Magnesium Sulfate 50 ml @ 25 mls/hr 1X ONCE IV Last administered on 05/16/19at 23:53; Start 05/16/19 at 23:00; Stop 05/17/19 at 00:59; Status DC Propranolol HCl (Inderal) 40 mg BID PO Last administered on 05/18/19 20:29; Start 05/17/19 at 09:00 Insulin Glargine (Lantus Syringe) 58 unit QHS SQ Last administered on 05/18/19at 21:50; Start 05/17/19 at 21:00 Losartan Potassium (Cozaar) 50 mg DAILY PO ; Start 05/17/19 at 09:00 Pantoprazole Sodium (Protonix) 40 mg DAILYAC PO Last administered on 05/19/19 07:13; Start 05/18/19 at 07:30 Atorvastatin Calcium (Lipitor) 80 mg QHS PO Last administered on 05/18/19 20:29; Start 05/17/19 at 21:00 Insulin Human Lispro (HumaLOG) 0-7 UNITS TIDACHC SQ Last administered on 05/18/19at 18:11; Start 05/17/19 at 11:30 Dextrose (Dextrose 50%-Water Syringe) 12.5 gm PRN Q15MIN PRN IV SEE COMMENTS; Start 05/17/19 at 08:15 Dextrose 250 ml PRN Q15MIN PRN IV SEE COMMENTS; Start 05/17/19 at 08:15 Ondansetron HCl (Zofran) 4 mg PRN Q6HRS PRN IV NAUSEA/VOMITING 1ST CHOICE Last administered on 05/17/19at 09:54; Start 05/17/19 at 09:15 Prochlorperazine Edisylate (Compazine) 5 mg PRN Q6HRS PRN IV NAUSEA/VOMITING (2nd Choice); Start 05/17/19 at 10:15 Heparin Sodium (Porcine) (HEPARIN for NUC MED) 100 unit 1X ONCE IV Last administered on 05/17/19at 14:57; Start 05/17/19 at 12:45; Stop 05/17/19 at 12:46; Status DC Diphenhydramine HCl (Benadryl) 50 mg PRN Q6HRS PRN IVP sleep aid Last administered on 05/17/19at 21:25; Start 05/17/19 at 21:00 Ringer's Solution 1,000 ml @ 75 mls/hr 1X ONCE IV Last administered on 05/18/19at 08:22; Start 05/18/19 at 07:00; Stop 05/18/19 at 20:19; Status DC Propofol 20 ml @ As Directed STK-MED ONCE IV ; Start 05/18/19 at 10:12; Stop 05/18/19 at 10:12; Status DC Zolpidem Tartrate (Ambien) 5 mg PRN QHS PRN PO INSOMNIA Last administered on 05/18/19at 21:50; Start 05/18/19 at 20:45 Active Scripts Active Lovaza ([place]-3 Acid Ethyl Esters) 1 Gm Capsule 2 Cap PO BID 30 Days Reported Irbesartan 300 Mg Tablet 150 Mg PO DAILY Tresiba (Insulin Degludec) 100 Unit/1 Ml Vial 116 Unit SQ HS Novolog (Insulin Aspart) 100 Unit/1 Ml Cartridge 35 Unit SQ WITH BREAKFAST Propranolol Hcl 40 Mg Tablet 1 Tab PO BID Crestor (Rosuvastatin Calcium) 20 Mg Tablet 1 Tab PO DAILY Protonix (Pantoprazole Sodium) 20 Mg Tablet. 1 Tab PO DAILY Metformin Hcl 1,000 Mg Tablet 1,000 Mg PO BIDWMEALS Vitals/I & O Vital Sign - Last 24 Hours 05/18/19 05/18/19 05/18/19 05/18/19 09:49 10:35 10:45 10:55 Temp 98.0 98.0 98.0 98.0 98.0 98.0 98.0 98.0 Pulse 62 64 61 59 Resp 20 20 20 20 B/P (MAP) 126/67 130/57 118/55 Pulse Ox 99 99 100 98 O2 Delivery Room Air Nasal Cannula Room Air O2 Flow Rate 3 3 05/18/19 05/18/19 05/18/19 05/18/19 11:10 11:45 15:00 19:00 Temp 98.0 97.9 97.9 98.2 98.0 97.9 97.9 98.2 Pulse 61 60 60 64 Resp 20 16 16 20 B/P (MAP) 121/59 135/52 (79) 129/69 (89) 107/60 (76) Pulse Ox 99 99 99 100 O2 Delivery Room Air Room Air Room Air Room Air 05/18/19 05/18/19 05/18/19 05/19/19 20:00 20:29 23:00 03:00 Temp 98.7 98.5 98.7 98.5 Pulse 64 67 68 Resp 18 18 B/P (MAP) 107/60 98/47 (64) 115/53 (73) Pulse Ox 99 98 O2 Delivery Room Air Room Air Room Air 05/19/19 07:00 Temp 98.1 98.1 Pulse 68 Resp 20 B/P (MAP) 120/56 (77) Pulse Ox 100 O2 Delivery Room Air Intake and Output 05/18/19 05/18/19 05/19/19 15:00 23:00 07:00 Intake Total 250 ml 720 ml Balance 250 ml 720 ml JODI CAMPBELL MD May 19, 2019 09:09
[2019-05-19] MEDS: PROPRANOLOL 40 MG TABLET. PO SCH ×2 (10:24→21:04)
[2019-05-19 11:00] VITALS: BP 119/62
--- NOTE | 2019-05-19 13:01 | PDOC ---
Objective: Vital Signs: Vital Signs Date Time Temp Pulse Resp B/P (MAP) Pulse Ox O2 Delivery O2 Flow Rate FiO2 05/19/19 11:00 98.7 62 20 119/62 (81) 98 Room Air 98.7 05/18/19 10:45 3 Labs: Laboratory Tests Test 05/18/19 17:07 05/18/19 20:24 05/19/19 07:33 Glucose (Fingerstick) 175 mg/dL (70-99) 173 mg/dL (70-99) 114 mg/dL (70-99) Imaging: EGD 05/18 E--Grade III varices distal half w/o signs of active or recent bleeding. Grade A or less esophagitis at 43cm. G--One AVM seen in body, not bleeding. No blood or hematin in stomach (though says ongoing bloody stools). No gastric varices. D--Normal to second portion. IMP: Non-bleeding esophageal varices. Mild GERD Gastric AVM, not bleeding. Not treated given thrombocytopenia and not seeming source of current issue. REC: Meckel's scan Continue PPI, po. Clears. If negative Meckel's, may need to consider colonoscopy. Meckel's 05/19 pending PE: out of room A/P: Hematochezia/melena RUPAL/pancytopenia - Hgb from 9.1 to 7.6 -- Will follow-up on Meckel's. BLAKE CORNELL May 19, 2019 13:01
[2019-05-19] MEDS: LOSARTAN POTASSIUM 50 MG TABLET. PO SCH (14:06)
--- NOTE | 2019-05-19 14:19 | NUR ---
SS following up with discharge planning. No discharge needs noted at this time. SS will continue to follow for discharge planning.
--- NOTE | 2019-05-19 14:30 | RAD ---
MECKELS SCAN Clinical Indication: Obscure GI bleed. Comparison: CT abdomen and pelvis with contrast May 16, 2019. GI bleed scan May 17, 2019. TECHNIQUE: Patient is injected with 11 mCi of technetium 99m pertechnetate. Dynamic anterior images of the abdomen are acquired time 60 minutes. Findings: Physiologic tracer accumulates in the stomach. No abnormal accumulation of tracer is identified. IMPRESSION: Negative Meckel's scan. Electronically signed by: Donaldo Girard MD (05/19/2019 2:27 PM) [id number]
[2019-05-19 15:00] VITALS: BP 117/60
[2019-05-19 19:00] VITALS: BP 127/40
[2019-05-19] MEDS: ATORVASTATIN CALCIUM 40 MG TABLET. PO SCH (21:04)
[2019-05-19] MEDS: INSULIN GLARGINE SYRINGE. SQ SCH (21:09)
[2019-05-19 23:00] VITALS: BP 113/56
[2019-05-20] VITALS (11 sets, daily range): BP systolic 120–145; BP diastolic 58–68
[2019-05-20] MEDS: PANTOPRAZOLE 40 MG TABLET.DR. PO SCH (06:37)
[2019-05-20 07:15] LABS: RED BLOOD COUNT 2.54 x10^6/uL (4.30-5.70); RED CELL DISTRIBUTION WIDTH 16.3 % (11.5-14.5); WHITE BLOOD COUNT 2.1 x10^3/uL (4.0-11.0)
[2019-05-20 07:22] LABS: HEMATOCRIT 20.2 % (39.0-53.0); HEMOGLOBIN 6.8 g/dL (13.0-17.5)
[2019-05-20] MEDS: INSULIN LISPRO 300 UNITS/3 ML VIAL. SQ SCH ×2 (07:30→11:30)
--- NOTE | 2019-05-20 09:05 | PDOC ---
PROGRESS NOTES Chief Complaint Chief Complaint A/P: Acute GI bleed - acute blood loss anemia - will type and screen, H&H q 8, will transfuse 2 units if his Hb drops below 7. Already down to 7.6 from 9.1 last night. GI consulted, will get tagged RBC scan Cirrhosis with varices - NAFLD per history [EGD and colonoscopy by Dr. Rufino Yepez on 10/04/18 for URPAL showed grade II esophageal varices, normal stomach, normal [id number] sessile polyp in distal descending colon, and 5mm sessile polyp in distal sigmoid colon. EGD by Dr. Rufino Yepez on 04/04/19 showed grade II esophageal varices (unchanged, nonbleeding) and gastritis. Recommendations to repeat EGD in 6 months, increase propranolol to 40mg BID, and to consider prophylactic banding w/ varices unchanged w/ increased medication. S/p cholecystectomy in 08/2018 (Dr. Barrera) for symptomatic cholelithiasis - cirrhosis noted intraoperatively.] Hypertriglyceridemia - previously on fenofibrate, now on insulin, advised prescription fish oil DM2 - hold metformin, may need contrast to assess bleed. Basal bolus plus in house Obesity - counseled on weight loss CAD w/ stents - hold ASA for GI bleed, cont propranolol HTN - hold losartan for lower BP HLD - cont meds BPH - cont meds GERD - IV PPI FEN - NPO PPX - IV PPI FULL CODE Dispo - inpatient for acute blood loss anemia History of Present Illness History of Present Illness Mr Tucker is a 53yo M w/ PMHx hypertriglyceridemia, DM2, Obesity, CAD w/ stents, HTN, HLD, BPH, GERD, cirrhosis w/ esophageal varices, RUPAL, colon polyps who presents with dark tarry and bright red blood in his stool. Has occurred about every 2 hours since. Reports h/o cirrhosis 2/2 [place] and esophageal varices - previously evaluated at [facility] and [facility]/transplant. Some nausea w/o vomiting. Doesn't feel hungry but would like water. No dysphagia. H/o GERD (denies heartburn/reflux) on pantoprazole QD. No abd pain. Denies diarrhea and constipation. No weight loss. [facility] records shown to be on his [employer] mayela - neg Hepatitis panel, MELA, AMA, HFE, and normal alpha 1 antitrypsin. Also says was seen at [facility] on Thursday for chest pain - says was given ASA and PE was ruled out last week. Has had EGD twice in the past year, states he has grade II varices. No transfusions, but has had iron IV previously. Denies CP and SOB currently, just feels nausea and fatigue. 05/17: Had 2 large bloody BM. Nuclear bleed scan negative for active bleeding. 05/18: Neg EGD 05/18. Hb 7.1 this morning, down from 7.5. 05/19: Negative Meckels scan Hb 6.8 this morning. Still with some abdominal cramping and nausea. He has not vomited, but does feels some epigastric fullness. He is very hungry, anxious about blood transfusion. Plan: With hb dropping will transfuse Possibly d/c if no further bloody BM for outpatient colonoscopy Vitals Vitals Vital Signs Date Time Temp Pulse Resp B/P (MAP) Pulse Ox O2 Delivery O2 Flow Rate FiO2 05/20/19 08:50 98.1 64 16 122/59 98.1 05/20/19 07:00 97 Room Air Physical Exam General: Alert, Oriented X3, Cooperative, No acute distress Abdomen: Normal bowel sounds, Soft, Other (epigastric tenderness, spleen palpable) Extremities: No clubbing, No cyanosis, No edema, Normal pulses, No tenderness/swelling Skin: No rashes, No breakdown, No significant lesion Labs LABS Laboratory Tests Test 05/19/19 15:14 05/19/19 20:17 05/20/19 06:10 05/20/19 07:47 Glucose (Fingerstick) 156 mg/dL (70-99) 187 mg/dL (70-99) 111 mg/dL (70-99) White Blood Count 2.1 x10^3/uL (4.0-11.0) Red Blood Count 2.54 x10^6/uL (4.30-5.70) Hemoglobin 6.8 g/dL (13.0-17.5) Hematocrit 20.2 % (39.0-53.0) Mean Corpuscular Volume 80 fL (79-100) Mean Corpuscular Hemoglobin 27 pg (25-35) Mean Corpuscular Hemoglobin Concent 34 g/dL (31-37) Red Cell Distribution Width 16.3 % (11.5-14.5) Platelet Count 42 x10^3/uL (140-400) Assessment and Plan Assessmemt and Plan Problems Medical Problems: (1) Acute blood loss anemia Status: Acute (2) BPH (benign prostatic hyperplasia) Status: Chronic (3) DM2 (diabetes mellitus, type 2) Status: Chronic (4) Esophageal varices in cirrhosis Status: Chronic (5) GERD (gastroesophageal reflux disease) Status: Chronic (6) GI bleed Status: Acute (7) HTN (hypertension) Status: Chronic (8) Hypomagnesemia Status: Acute (9) Rectal bleeding Status: Acute (10) Transaminitis Status: Acute Comment Review of Relevant I have reviewed the following items navid (where applicable) has been applied. Labs Laboratory Tests Test 05/18/19 11:40 05/18/19 16:55 05/18/19 17:07 05/18/19 20:24 Glucose (Fingerstick) 104 mg/dL (70-99) 175 mg/dL (70-99) 173 mg/dL (70-99) White Blood Count 2.3 x10^3/uL (4.0-11.0) Red Blood Count 2.66 x10^6/uL (4.30-5.70) Hemoglobin 7.1 g/dL (13.0-17.5) Hematocrit 21.5 % (39.0-53.0) Mean Corpuscular Volume 81 fL (79-100) Mean Corpuscular Hemoglobin 27 pg (25-35) Mean Corpuscular Hemoglobin Concent 33 g/dL (31-37) Red Cell Distribution Width 16.0 % (11.5-14.5) Platelet Count 46 x10^3/uL (140-400) Test 05/19/19 05:22 05/19/19 07:33 05/19/19 15:14 05/19/19 20:17 White Blood Count 2.2 x10^3/uL (4.0-11.0) Red Blood Count 2.67 x10^6/uL (4.30-5.70) Hemoglobin 7.1 g/dL (13.0-17.5) Hematocrit 21.6 % (39.0-53.0) Mean Corpuscular Volume 81 fL (79-100) Mean Corpuscular Hemoglobin 27 pg (25-35) Mean Corpuscular Hemoglobin Concent 33 g/dL (31-37) Red Cell Distribution Width 16.0 % (11.5-14.5) Platelet Count 46 x10^3/uL (140-400) Neutrophils (%) (Auto) 66 % (31-73) Lymphocytes (%) (Auto) 17 % (24-48) Monocytes (%) (Auto) 13 % (0-9) Eosinophils (%) (Auto) 4 % (0-3) Basophils (%) (Auto) 1 % (0-3) Neutrophils # (Auto) 1.5 x10^3/uL (1.8-7.7) Lymphocytes # (Auto) 0.4 x10^3/uL (1.0-4.8) Monocytes # (Auto) 0.3 x10^3/uL (0.0-1.1) Eosinophils # (Auto) 0.1 x10^3/uL (0.0-0.7) Basophils # (Auto) 0.0 x10^3/uL (0.0-0.2) Glucose (Fingerstick) 114 mg/dL (70-99) 156 mg/dL (70-99) 187 mg/dL (70-99) Test 05/20/19 06:10 05/20/19 07:47 White Blood Count 2.1 x10^3/uL (4.0-11.0) Red Blood Count 2.54 x10^6/uL (4.30-5.70) Hemoglobin 6.8 g/dL (13.0-17.5) Hematocrit 20.2 % (39.0-53.0) Mean Corpuscular Volume 80 fL (79-100) Mean Corpuscular Hemoglobin 27 pg (25-35) Mean Corpuscular Hemoglobin Concent 34 g/dL (31-37) Red Cell Distribution Width 16.3 % (11.5-14.5) Platelet Count 42 x10^3/uL (140-400) Glucose (Fingerstick) 111 mg/dL (70-99) Laboratory Tests Test 05/19/19 15:14 05/19/19 20:17 05/20/19 06:10 05/20/19 07:47 Glucose (Fingerstick) 156 mg/dL (70-99) 187 mg/dL (70-99) 111 mg/dL (70-99) White Blood Count 2.1 x10^3/uL (4.0-11.0) Red Blood Count 2.54 x10^6/uL (4.30-5.70) Hemoglobin 6.8 g/dL (13.0-17.5) Hematocrit 20.2 % (39.0-53.0) Mean Corpuscular Volume 80 fL (79-100) Mean Corpuscular Hemoglobin 27 pg (25-35) Mean Corpuscular Hemoglobin Concent 34 g/dL (31-37) Red Cell Distribution Width 16.3 % (11.5-14.5) Platelet Count 42 x10^3/uL (140-400) Medications Current Medications Pantoprazole Sodium (PROTONIX VIAL for IV PUSH) 40 mg 1X ONCE IVP Last administered on 05/16/19at 18:04; Start 05/16/19 at 17:45; Stop 05/16/19 at 17:46; Status DC Sodium Chloride 1,000 ml @ 1,000 mls/hr 1X ONCE IV Last administered on 05/16/19at 18:04; Start 05/16/19 at 17:45; Stop 05/16/19 at 18:44; Status DC Iohexol (Omnipaque 300 Mg/ml) 75 ml 1X ONCE IV Last administered on 05/16/19at 19:43; Start 05/16/19 at 19:00; Stop 05/16/19 at 19:01; Status DC Info (CONTRAST GIVEN -- Rx MONITORING) 1 each PRN DAILY PRN MC SEE COMMENTS; Start 05/16/19 at 19:00; Stop 05/18/19 at 18:59; Status DC Magnesium Sulfate/ Dextrose 100 ml @ 100 mls/hr 1X ONCE IV Last administered on 05/16/19at 20:02; Start 05/16/19 at 19:30; Stop 05/16/19 at 20:29; Status DC Ondansetron HCl (Zofran) 4 mg PRN Q8HRS PRN IV NAUSEA/VOMITING 1ST CHOICE Last administered on 05/17/19at 02:10; Start 05/16/19 at 22:45; Stop 05/17/19 at 09:13; Status DC Morphine Sulfate (Morphine Sulfate) 4 mg PRN Q2HR PRN IV SEVERE PAIN 7-10; Start 05/16/19 at 22:45; Stop 05/17/19 at 22:44; Status DC Pantoprazole Sodium 80 mg/ Sodium Chloride 100 ml @ 10 mls/hr Q10H IV Last administered on 05/17/19at 18:21; Start 05/16/19 at 23:00; Stop 05/17/19 at 22:59; Status DC Sodium Chloride 1,000 ml @ 75 mls/hr 1X ONCE IV Last administered on 05/16/19 23:53; Start 05/16/19 at 23:00; Stop 05/17/19 at 12:19; Status DC Magnesium Sulfate 50 ml @ 25 mls/hr 1X ONCE IV Last administered on 05/16/19at 23:53; Start 05/16/19 at 23:00; Stop 05/17/19 at 00:59; Status DC Propranolol HCl (Inderal) 40 mg BID PO Last administered on 05/19/19 21:09; Start 05/17/19 at 09:00 Insulin Glargine (Lantus Syringe) 58 unit QHS SQ Last administered on 05/19/19 21:09; Start 05/17/19 at 21:00 Losartan Potassium (Cozaar) 50 mg DAILY PO ; Start 05/17/19 at 09:00 Pantoprazole Sodium (Protonix) 40 mg DAILYAC PO Last administered on 05/20/19 06:37; Start 05/18/19 at 07:30 Atorvastatin Calcium (Lipitor) 80 mg QHS PO Last administered on 05/19/19 21:09; Start 05/17/19 at 21:00 Insulin Human Lispro (HumaLOG) 0-7 UNITS TIDACHC SQ Last administered on 05/19/19 17:22; Start 05/17/19 at 11:30 Dextrose (Dextrose 50%-Water Syringe) 12.5 gm PRN Q15MIN PRN IV SEE COMMENTS; Start 05/17/19 at 08:15 Dextrose 250 ml PRN Q15MIN PRN IV SEE COMMENTS; Start 05/17/19 at 08:15 Ondansetron HCl (Zofran) 4 mg PRN Q6HRS PRN IV NAUSEA/VOMITING 1ST CHOICE Last administered on 05/17/19at 09:54; Start 05/17/19 at 09:15 Prochlorperazine Edisylate (Compazine) 5 mg PRN Q6HRS PRN IV NAUSEA/VOMITING (2nd Choice); Start 05/17/19 at 10:15 Heparin Sodium (Porcine) (HEPARIN for NUC MED) 100 unit 1X ONCE IV Last administered on 05/17/19at 14:57; Start 05/17/19 at 12:45; Stop 05/17/19 at 12:46; Status DC Diphenhydramine HCl (Benadryl) 50 mg PRN Q6HRS PRN IVP sleep aid Last administered on 05/17/19at 21:25; Start 05/17/19 at 21:00 Ringer's Solution 1,000 ml @ 75 mls/hr 1X ONCE IV Last administered on 05/18/19at 08:22; Start 05/18/19 at 07:00; Stop 05/18/19 at 20:19; Status DC Propofol 20 ml @ As Directed STK-MED ONCE IV ; Start 05/18/19 at 10:12; Stop 05/18/19 at 10:12; Status DC Zolpidem Tartrate (Ambien) 5 mg PRN QHS PRN PO INSOMNIA Last administered on 05/18/19at 21:50; Start 05/18/19 at 20:45 Active Scripts Active Lovaza (Tippo-3 Acid Ethyl Esters) 1 Gm Capsule 2 Cap PO BID 30 Days Reported Irbesartan 300 Mg Tablet 150 Mg PO DAILY Tresiba (Insulin Degludec) 100 Unit/1 Ml Vial 116 Unit SQ HS Novolog (Insulin Aspart) 100 Unit/1 Ml Cartridge 35 Unit SQ WITH BREAKFAST Propranolol Hcl 40 Mg Tablet 1 Tab PO BID Crestor (Rosuvastatin Calcium) 20 Mg Tablet 1 Tab PO DAILY Protonix (Pantoprazole Sodium) 20 Mg Tablet.dr 1 Tab PO DAILY Metformin Hcl 1,000 Mg Tablet 1,000 Mg PO BIDWMEALS Vitals/I & O Vital Sign - Last 24 Hours 05/19/19 05/19/19 05/19/19 05/19/19 10:24 11:00 15:00 19:00 Temp 98.7 98.6 98.0 98.7 98.6 98.0 Pulse 68 62 61 63 Resp 20 20 20 B/P (MAP) 120/56 119/62 (81) 117/60 (79) 127/40 (69) Pulse Ox 98 100 95 O2 Delivery Room Air Room Air Room Air 05/19/19 05/19/19 05/19/19 05/20/19 20:00 21:09 23:00 03:00 Temp 98.2 98.0 98.2 98.0 Pulse 63 74 78 Resp 20 20 B/P (MAP) 127/40 113/56 (75) 122/58 (79) Pulse Ox 97 97 O2 Delivery Room Air Room Air Room Air 05/20/19 05/20/19 07:00 08:50 Temp 98.1 98.1 98.1 98.1 Pulse 63 64 Resp 20 16 B/P (MAP) 120/58 (78) 122/59 Pulse Ox 97 O2 Delivery Room Air Intake and Output 05/19/19 05/19/19 05/20/19 15:00 23:00 07:00 Intake Total 480 ml 800 ml 200 ml Balance 480 ml 800 ml 200 ml JODI CAMPBELL MD May 20, 2019 09:05
[2019-05-20] MEDS: PROPRANOLOL 40 MG TABLET. PO SCH (10:19)
[2019-05-20] MEDS: LOSARTAN POTASSIUM 50 MG TABLET. PO SCH ×2 (10:19→12:11)
--- NOTE | 2019-05-20 12:50 | PDOC ---
Subjective: Subjective: Just ate lunch, feels full. No bleeding - normal stool this morning. Hopeful to discharge home after transfusions. Objective: Vital Signs: Vital Signs Date Time Temp Pulse Resp B/P (MAP) Pulse Ox O2 Delivery O2 Flow Rate FiO2 05/20/19 12:11 70 135/65 05/20/19 12:05 98.3 16 98.3 05/20/19 11:00 97 Room Air Labs: Laboratory Tests Test 05/19/19 15:14 05/19/19 20:17 05/20/19 06:10 05/20/19 07:47 Glucose (Fingerstick) 156 mg/dL 187 mg/dL 111 mg/dL White Blood Count 2.1 x10^3/uL Red Blood Count 2.54 x10^6/uL Hemoglobin 6.8 g/dL Hematocrit 20.2 % Mean Corpuscular Volume 80 fL Mean Corpuscular Hemoglobin 27 pg Mean Corpuscular Hemoglobin Concent 34 g/dL Red Cell Distribution Width 16.3 % Platelet Count 42 x10^3/uL Imaging: Meckel's 05/18 IMPRESSION: Negative Meckel's scan. PE: GEN: NAD LUNGS: CTAB HEART: RRR ABD: NABS, S/ND/NT NEURO/PSYCH: A & O �3 A/P: Hematochezia/melena - resolved RUPAL/pancytopenia - Hgb drifted to 6.8, transfusing w/ plans to recheck Hgb Non-bleeding esophageal varices, mild GERD, non-bleeding gastric AVM -- Does not wish to pursue inpt colonoscopy. DC per primary. BLAKE CORNELL May 20, 2019 12:50
--- NOTE | 2019-05-20 14:16 | PDOC3 ---
Discharge Summary Visit Information Date of Admission: May 16, 2019 Date of Discharge: May 20, 2019 Admitting Diagnosis: Acute lower GI Bleed Final Diagnosis Problems Medical Problems: (1) Acute blood loss anemia Status: Acute (2) BPH (benign prostatic hyperplasia) Status: Chronic (3) DM2 (diabetes mellitus, type 2) Status: Chronic (4) Esophageal varices in cirrhosis Status: Chronic (5) GERD (gastroesophageal reflux disease) Status: Chronic (6) GI bleed Status: Acute (7) HTN (hypertension) Status: Chronic (8) Hypomagnesemia Status: Acute (9) Rectal bleeding Status: Acute (10) Transaminitis Status: Acute Brief Hospital Course Allergies Allergies Coded Allergies Type Severity Reaction Last Updated Verified lisinopril Adverse Reaction Intermediate cough 05/18/19 Yes Vital Signs Vital Signs Date Time Temp Pulse Resp B/P (MAP) Pulse Ox O2 Delivery O2 Flow Rate FiO2 05/20/19 13:05 98.3 74 16 145/68 98.3 05/20/19 11:00 97 Room Air Lab Results Laboratory Tests Test 05/18/19 16:55 05/18/19 17:07 05/18/19 20:24 05/19/19 05:22 White Blood Count 2.3 x10^3/uL (4.0-11.0) 2.2 x10^3/uL (4.0-11.0) Red Blood Count 2.66 x10^6/uL (4.30-5.70) 2.67 x10^6/uL (4.30-5.70) Hemoglobin 7.1 g/dL (13.0-17.5) 7.1 g/dL (13.0-17.5) Hematocrit 21.5 % (39.0-53.0) 21.6 % (39.0-53.0) Mean Corpuscular Volume 81 fL (79-100) 81 fL (79-100) Mean Corpuscular Hemoglobin 27 pg (25-35) 27 pg (25-35) Mean Corpuscular Hemoglobin Concent 33 g/dL (31-37) 33 g/dL (31-37) Red Cell Distribution Width 16.0 % (11.5-14.5) 16.0 % (11.5-14.5) Platelet Count 46 x10^3/uL (140-400) 46 x10^3/uL (140-400) Glucose (Fingerstick) 175 mg/dL (70-99) 173 mg/dL (70-99) Neutrophils (%) (Auto) 66 % (31-73) Lymphocytes (%) (Auto) 17 % (24-48) Monocytes (%) (Auto) 13 % (0-9) Eosinophils (%) (Auto) 4 % (0-3) Basophils (%) (Auto) 1 % (0-3) Neutrophils # (Auto) 1.5 x10^3/uL (1.8-7.7) Lymphocytes # (Auto) 0.4 x10^3/uL (1.0-4.8) Monocytes # (Auto) 0.3 x10^3/uL (0.0-1.1) Eosinophils # (Auto) 0.1 x10^3/uL (0.0-0.7) Basophils # (Auto) 0.0 x10^3/uL (0.0-0.2) Test 05/19/19 07:33 05/19/19 15:14 05/19/19 20:17 05/20/19 06:10 Glucose (Fingerstick) 114 mg/dL (70-99) 156 mg/dL (70-99) 187 mg/dL (70-99) White Blood Count 2.1 x10^3/uL (4.0-11.0) Red Blood Count 2.54 x10^6/uL (4.30-5.70) Hemoglobin 6.8 g/dL (13.0-17.5) Hematocrit 20.2 % (39.0-53.0) Mean Corpuscular Volume 80 fL (79-100) Mean Corpuscular Hemoglobin 27 pg (25-35) Mean Corpuscular Hemoglobin Concent 34 g/dL (31-37) Red Cell Distribution Width 16.3 % (11.5-14.5) Platelet Count 42 x10^3/uL (140-400) Test 05/20/19 07:47 Glucose (Fingerstick) 111 mg/dL (70-99) Laboratory Tests Test 05/19/19 15:14 05/19/19 20:17 05/20/19 06:10 05/20/19 07:47 Glucose (Fingerstick) 156 mg/dL (70-99) 187 mg/dL (70-99) 111 mg/dL (70-99) White Blood Count 2.1 x10^3/uL (4.0-11.0) Red Blood Count 2.54 x10^6/uL (4.30-5.70) Hemoglobin 6.8 g/dL (13.0-17.5) Hematocrit 20.2 % (39.0-53.0) Mean Corpuscular Volume 80 fL (79-100) Mean Corpuscular Hemoglobin 27 pg (25-35) Mean Corpuscular Hemoglobin Concent 34 g/dL (31-37) Red Cell Distribution Width 16.3 % (11.5-14.5) Platelet Count 42 x10^3/uL (140-400) Brief Hospital Course Mr Tucker is a 53yo M w/ PMHx hypertriglyceridemia, DM2, Obesity, CAD w/ stents, HTN, HLD, BPH, GERD, cirrhosis w/ esophageal varices, RUPAL, colon polyps who presents with dark tarry and bright red blood in his stool. Has occurred about every 2 hours since. Reports h/o cirrhosis 2/2 [place] and esophageal varices - previously evaluated at [facility] and [facility]/transplant. Some nausea w/o vomiting. Doesn't feel hungry but would like water. No dysphagia. H/o GERD (denies heartburn/reflux) on pantoprazole QD. No abd pain. Denies diarrhea and constipation. No weight loss. [facility] records shown to be on his [employer] mayela - neg Hepatitis panel, MELA, AMA, HFE, and normal alpha 1 antitrypsin. Also says was seen at [facility] on Thursday for chest pain - says was given ASA and PE was ruled out last week. Has had EGD twice in the past year, states he has grade II varices. No transfusions, but has had iron IV previously. Denies CP and SOB currently, just feels nausea and fatigue. 05/17: Had 2 large bloody BM. Nuclear bleed scan negative for active bleeding. 05/18: Neg EGD 05/18. Hb 7.1 this morning, down from 7.5. 05/19: Negative Meckels scan Hb 6.8 this morning. Still with some abdominal cramping and nausea. He has not vomited, but does feels some epigastric fullness. He is very hungry, anxious about blood transfusion x2. Hb appropriately corrected and he is discharged into the care of his . Assessment: A/P: Acute GI bleed - acute blood loss anemia - will transfuse 2 units for Hb drops below 7. Cirrhosis with varices - NAFLD per history [EGD and colonoscopy by Dr. Rufino Yepez on 10/04/18 for RUPAL showed grade II esophageal varices, normal stomach, normal [id number] sessile polyp in distal descending colon, and 5mm sessile polyp in distal sigmoid colon. EGD by Dr. Rufino Yepez on 04/04/19 showed grade II esophageal varices (unchanged, nonbleeding) and gastritis. Recommendations to repeat EGD in 6 mo nths, increase propranolol to 40mg BID, and to consider prophylactic banding w/ varices unchanged w/ increased medication. S/p cholecystectomy in 08/2018 (Dr. Barrera) for symptomatic cholelithiasis - cirrhosis noted intraoperatively.] Hypertriglyceridemia - previously on fenofibrate, now on insulin, advised prescription fish oil DM2 - held metformin, may need contrast to assess bleed. Basal bolus plus in house Obesity - counseled on weight loss CAD w/ stents - hold ASA for GI bleed, cont propranolol HTN - hold losartan for lower BP HLD - cont meds BPH - cont meds GERD - PPI Plan: With hb dropping will transfuse Possibly d/c if no further bloody BM for outpatient colonoscopy Non-bleeding esophageal varices, mild GERD, non-bleeding gastric AVM on EGD Greater than 30 minutes spent on d/c Discharge Information Condition at Discharge: Improved Follow Up: Weeks (1) Disposition/Orders: D/C to Home Scheduled Insulin Aspart (Novolog) 100 Unit/1 Ml Cartridge, 35 UNIT SQ with breakfast for diabetes, (Reported) Entered as Reported by: MATHEW GIL on 05/17/19209 Last Taken: UNKNOWN on Unknown Date & Time Last Action: New Order on 05/17/19209 by MATHEW GIL Insulin Degludec (Tresiba) 100 Unit/1 Ml Vial, 116 UNIT SQ HS for diabetes, (Reported) Entered as Reported by: MATHEW GIL on 05/17/19209 Last Taken: UNKNOWN on Unknown Date & Time Last Action: Converted on 05/17/19807 by JODI CAMPBELL MD Irbesartan (Irbesartan) 300 Mg Tablet, 150 MG PO DAILY for antihypertensive, (Reported) Entered as Reported by: MATHEW GIL on 05/17/19209 Last Taken: UNKNOWN on Unknown Date & Time Last Action: Converted on 05/17/19807 by JODI CAMPBELL MD Metformin Hcl (Metformin Hcl) 1,000 Mg Tablet, 1,000 MG PO BIDWMEALS for diabetes, (Reported) Entered as Reported by: MATHEW GIL on 05/17/19209 Last Action: New Order on 05/17/19209 by MATHEW GIL Bolivar-3 Acid Ethyl Esters (Lovaza) 1 Gm Capsule, 2 CAP PO BID for Hypertriglyceridemia for 30 Days, #120 Ref 5 Prescribed by: JODI CAMPBELL MD on 05/18/19802 Pantoprazole Sodium (Protonix) 20 Mg Tablet.dr, 1 TAB PO DAILY for gerd, #30 (Reported) Entered as Reported by: MATHEW GIL on 05/17/19209 Last Action: Converted on 05/17/19807 by JODI CAMPBELL MD Propranolol Hcl (Propranolol Hcl) 40 Mg Tablet, 1 TAB PO BID for blood pressure, #60 Ref 5 (Reported) Entered as Reported by: MATHEW GIL on 05/17/19209 Last Action: Continued on 05/17/19807 by JODI CAMPBELL MD Rosuvastatin Calcium (Crestor) 20 Mg Tablet, 1 TAB PO DAILY for high chol esterol, #30 Ref 5 (Reported) Entered as Reported by: MATHEW GIL on 05/17/19209 Last Action: Converted on 05/17/19807 by MD SHANNAN AGUILAR CHRISTOPHER S MD May 20, 2019 14:16
[2019-05-20 15:18] LABS: HEMATOCRIT 26.5 % (39.0-53.0); RED BLOOD COUNT 3.23 x10^6/uL (4.30-5.70); RED CELL DISTRIBUTION WIDTH 16.3 % (11.5-14.5); WHITE BLOOD COUNT 2.5 x10^3/uL (4.0-11.0)
[2019-05-20 15:20] LABS: HEMOGLOBIN 9.2 g/dL (13.0-17.5)
--- NOTE | 2019-05-20 16:40 | NUR ---
Discharge orders placed. Discharge instructions/medications discussed with pt/pt . Explained to pt will need to f/u with scheduled hematology appt, notify primary GI of hospital stay, and PCP x1 week. Pt voiced understanding. New rx for [place] 3 given to pt. Discussed indications. Pt walked out to private vehicle and secured in car without complications.
== END 2019-05-20 16:30 | disposition home or self-care (01) | DRG 432 ==
LOC: ER 16:44 → 4 NORTH 22:28
PROVIDERS: ADMIT Internal Medicine; ATTEND Internal Medicine
PROC: 0DJ08ZZ Inspection of Upper Intestinal Tract, Via Natural or Artificial Opening Endoscopic (ICD-10-PCS; principal; 2019-05-18 10:30)
PROC: 30233N1 Transfusion of Nonautologous Red Blood Cells into Peripheral Vein, Percutaneous Approach (ICD-10-PCS; 2019-05-20)
DX: K74.60 Unspecified cirrhosis of liver (principal); I85.11 Secondary esophageal varices with bleeding; D61.818 Other pancytopenia; D62 Acute posthemorrhagic anemia; K31.819 Angiodysplasia of stomach and duodenum without bleeding; K21.0 Gastro-esophageal reflux disease with esophagitis; I25.10 Atherosclerotic heart disease of native coronary artery without angina pectoris; E11.9 Type 2 diabetes mellitus without complications; I25.2 Old myocardial infarction; E83.42 Hypomagnesemia; E78.1 Pure hyperglyceridemia; E66.9 Obesity, unspecified; E78.5 Hyperlipidemia, unspecified; I10 Essential (primary) hypertension; N40.0 Benign prostatic hyperplasia without lower urinary tract symptoms; K75.81 Nonalcoholic steatohepatitis (NASH); K57.90 Diverticulosis of intestine, part unspecified, without perforation or abscess without bleeding; Z90.49 Acquired absence of other specified parts of digestive tract; Z95.5 Presence of coronary angioplasty implant and graft; Z88.8 Allergy status to other drugs, medicaments and biological substances; Z68.29 Body mass index [BMI] 29.0-29.9, adult; Z86.010 Personal history of colon polyps; Z83.3 Family history of diabetes mellitus; Z79.4 Long term (current) use of insulin; K29.70 Gastritis, unspecified, without bleeding
CPT/HCPCS: 36415; 43235; 74177; 78278; 78290; 80048; 80053; 80061; 80307; 81001; 82274; 82553; 82962; 83690; 83735; 83880; 84484; 85025; 85027; 85610; 86850; 86900; 86901; 86920; 93005; 96374; A9512; A9560; C9113; J1200; J1815; J2405; J2704; J3475; J7030; J7120; P9016; Q9967; 99285-25; G0378

== ENCOUNTER 2021-05-05 02:33 | Emergency (ER) | payer BC ==
[~2021-05-05] VITALS: Ht 188 cm; Wt 112.3 kg
[~2021-05-05 02:33] MED LIST: CRESTOR20 MG PO; INSU100C4 SQ; INSU100V37 SQ; IRBE300T23 PO; METF10007 PO; OMEG1CAP2 PO; PANT20TA2 PO; PROP40TA PO
[2021-05-05] MEDS ORDERED: NEOMY/BACITR/POLYMYXIN OINT PACKET. TP ONE (02:45)
[2021-05-05] MEDS ORDERED: LIDOCAINE 2%/EPI 1:100,000 20 ML VIAL. INJ ONE (02:45)
--- NOTE | 2021-05-05 03:04 | PHYS DOC ---
Past Medical History Past Medical History: CAD, Diabetes-Type II, Liver Disease, [place], Other Additional Past Medical Histor: Esophagial Varieses, Fatty liver, chirrosis Past Surgical History: Cholecystectomy, Coronary Bypass Surgery Smoking Status: Former Smoker Alcohol Use: Occasionally Drug Use: None General Adult EDM: Chief Complaint: ALCOHOL INTOXICATION HPI: HPI: Patient is a 55 year old male who presents via EMS s/p mechanical fall earlier this evening. Reports he fell forward on his face with associated nose bleeding. Also reports abrasions on his nose. Admits to drinking two bourbon and cokes prior to fall. Unknown if he lost consciousness. Denies headache or neck pain, Review of Systems: Review of Systems: Constitutional: Denies fever or chills Eyes: Denies redness or eye pain HENT: Reports epistaxis. Denies sore throat. Respiratory: Denies cough or shortness of breath Cardiovascular: Denies chest pain or palpitations GI: Denies abdominal pain, nausea, or vomiting : Denies dysuria or hematuria Musculoskeletal: Denies back pain, neck pain, or joint pain Integument: Denies rash or skin lesions Neurologic: Denies headache, focal weakness or sensory changes Complete systems were reviewed and found to be within normal limits, except as documented in this note. Heart Score: C/O Chest Pain: N/A Current Medications: Current Medications Medications (Trade) Dose Ordered Sig/Mp Start Time Stop Time Status Last Admin Dose Admin Lidocaine/ Epinephrine (LIDOCAINE 2%-EPI 1:100,000 multi-dose) 20 ml 1X ONCE 05/05/21 02:45 05/05/21 02:46 DC Neomycin/ Polymyxin/ Bacitracin (Triple Antibiotic Ointment) 1 pkt 1X ONCE 05/05/21 02:45 05/05/21 02:46 DC Allergies: Allergies: Allergies Coded Allergies Type Severity Reaction Last Updated Verified lisinopril Adverse Reaction Intermediate cough 05/18/19 Yes Physical Exam: PE: Constitutional: Well developed, well nourished, no acute distress, non-toxic appearance HENT: Normocephalic. There is dried blood in the bilateral nares. Abrasions noted over the nasal bridge. Eyes: PERRL, nystagmus present, conjunctiva normal, no discharge Neck: Normal range of motion, no tenderness, supple Lungs & Thorax: No respiratory distress, equal chest rise and fall Abdomen: Soft, no tenderness Skin: Warm, dry, no erythema, no rash Back: No tenderness, no CVA tenderness Extremities: No tenderness, ROM intact, no edema Neurologic: Alert and oriented X 3, normal motor function, normal sensory function, no focal deficits noted Psychologic: Intoxicated. Affect normal. EKG: EKG: [] Radiology/Procedures: Radiology/Procedures: CT HEAD, MAXILLOFACIAL, AND CERVICAL SPINE WITHOUT CONTRAST History: Reason: fall, facial pain/trauma / Spl. Instructions: / History: Comparison: None. Procedure: Axial images are obtained of the head from the skull base through the vertex without IV contrast. Noncontrast helical CT of the cervical spine was performed. Axial, sagittal, and coronal reconstructions were obtained. Helical CT imaging of the facial bones is performed without IV contrast. Findings: The ventricles and sulci are normal for the patient's age. No mass-effect, midline shift, hemorrhage or obvious acute infarction is identified. Basilar cisterns are patent. Bone windows demonstrate no significant calvarial abnormality. There is age-indeterminate nondisplaced fracture of the right nasal bone, coronal image 4. Slight leftward deviation of the bony nasal septum. Orbital floors are intact. Tiny foci of subcutaneous air right nasal soft tissues. This may indicate that the right nasal bone fracture is acute. The visualized paranasal sinuses are clear. Mastoid air cells are well aerated. There is no evidence of acute fracture or acute malalignment of the cervical spine. Mildly hypertrophic facet joints. There is degenerative endplate spurring, uncinate process hypertrophy, and disc space narrowing of C5/6 and C6/C7. There is neural foraminal narrowing at these 2 levels. There is endplate spurring at other levels. There is central canal stenosis of C5/C6. Bilateral carotid artery calcifications. The visualized lung apices are clear. IMPRESSION: 1. No acute intracranial abnormality. 2. No acute fracture of the cervical spine. 3. There is nondisplaced fracture of the right nasal bone. Electronically signed by: Donaldo Girard MD (05/05/2021 4:02 AM) [facility] Compliance Statement: One or more of the following individualized dose reduction techniques were utilized for this examination: 1. Automated exposure control 2. Adjustment of the mA and/or kV according to patient size 3. Use of iterative reconstruction technique CT THORAX WO Clinical Indication: Reason: fall, facial pain/trauma / Spl. Instructions: / History: Comparison: CT abdomen and pelvis with contrast May 16, 2019. TECHNIQUE: Helical CT imaging of the chest is performed without contrast. Findings: There is no adenopathy in the chest. The great vessels are normal caliber. There is coronary artery disease. Calcific aortic valve stenosis. The cardiac size is normal, no pericardial effusion. There is no pleural abnormality. The central airways are patent. The lungs are clear. Cholecystectomy. Subtle nodular contour of the liver suggests chronic liver disease. There is unchanged splenomegaly. No acute displaced rib fracture. The thoracic spine alignment is maintained. IMPRESSION: No acute traumatic injury in the chest. Electronically signed by: Donaldo Girard MD (05/05/2021 4:07 AM) [facility] Course & Med Decision Making: Course & Med Decision Making 55 year old male presents s/p mechanical fall. Cervical collar placed upon arrival in the ED. Head and neck CT positive for fracture of right nasal bone but otherwise unremarkable and c-collar removed. Lacerations on the nose repa ired, see procedure note. Administered Norflex for pain. Educated on incentive spirometry. Patient stable for discharge with outpatient follow-up with PCP. Discussed findings and plan with patient, who acknowledges understanding and agreement. Sim Disclaimer: Sim Disclaimer: This electronic medical record was generated, in whole or in part, using a voice recognition dictation system. Laceration/Wound Repair Progress Verbal consent obtained. Time out performed. Hand hygiene utilized. Wound cleaned with ChloraPrep. Anesthesia obtained via a 30-gauge hypodermic needle with (2) mL's of lidocaine 2% with epinephrine. Copious irrigation performed. Wound well approximated with 8 sutures. Patient tolerated procedure well and without difficulty. Empiric antibiotic ointment applied prior to sterile dressing. Departure Departure Impression: Primary Impression: Alcohol intoxication Qualified Codes: F10.920 - Alcohol use, unspecified with intoxication, uncomplicated Additional Impressions: Laceration of nose Qualified Codes: S01.21XA - Laceration without foreign body of nose, initial encounter Nasal bone fracture Qualified Codes: S02.2XXA - Fracture of nasal bones, initial encounter for closed fracture Abrasion of nose Qualified Codes: S00.31XA - Abrasion of nose, initial encounter Chest wall contusion Qualified Codes: S20.211A - Contusion of right front wall of thorax, initial encounter Disposition: HOME / SELF CARE / HOMELESS Condition: STABLE Referrals: UNKNOWN PCP NAME (PCP) Patient Instructions: Abrasion, [id number], Alcohol Intoxication, [id number], Incentive Spirometer, Laceration Care, Adult, [id number], Nasal Fracture, [id number] Additional Instructions: Do not soak your wound. You may shower. Clean wound daily with soap and water. Change dressing 2 times daily. Use over the counter antibiotic ointment with each dressing change. Sutures need to be removed in 5 days. Present to your family doctor or local urgent care for removal. You may also present to the ED but it will be an additional visit/charge. After suture removal you may use Vitamin E ointment to soften the wound and prevent scarring. Use over the counter Tylenol and/or Ibuprofen for pain or discomfort. Scripts Orphenadrine Citrate (ORPHENADRINE CITRATE) 100 Mg Tablet.er 1 TAB PO BID PRN for MUSCLE PAIN, #14 TAB Prov: KALLI LOOMIS DO 05/05/21 Amoxicillin/Potassium Clav (AUGMENTIN 875-125 TABLET) 1 Each Tablet 1 TAB PO BID for 7 Days, #14 TAB Prov: KALLI LOOMIS DO 05/05/21 KALLI LOOMIS DO May 05, 2021 03:03
--- NOTE | 2021-05-05 04:04 | RAD ---
PQRS Compliance Statement: One or more of the following individualized dose reduction techniques were utilized for this examinat ion: 1. Automated exposure control 2. Adjustment of the mA and/or kV according to patient size 3. Use of iterative reconstruction technique CT HEAD, MAXILLOFACIAL, AND CERVICAL SPINE WITHOUT CONTRAST History: Reason: fall, facial pain/trauma / Spl. Instructions: / History: Comparison: None. Procedure: Axial images are obtained of the head from the skull base through the vertex without IV co ntrast. Noncontrast helical CT of the cervical spine was performed. Axial, sagittal, and coronal rec onstructions were obtained. Helical CT imaging of the facial bones is performed without IV contrast. Findings: The ventricles and sulci are normal for the patient's age. No mass-effect, midline shift, hemorrhage or obvious acute infarction is identified. Basilar cistern s are patent. Bone windows demonstrate no significant calvarial abnormality. There is age-indeterminate nondisplaced fracture of the right nasal bone, coronal image 4. Slight lef tward deviation of the bony nasal septum. Orbital floors are intact. Tiny foci of subcutaneous air ri ght nasal soft tissues. This may indicate that the right nasal bone fracture is acute. The visualized paranasal sinuses are clear. Mastoid air cells are well aerated. There is no evidence of acute fracture or acute malalignment of the cervical spine. Mildly hypertrophic facet joints. There is degenerative endplate spurring, uncinate process hypertrop hy, and disc space narrowing of C5/6 and C6/C7. There is neural foraminal narrowing at these 2 levels . There is endplate spurring at other levels. There is central canal stenosis of C5/C6. Bilateral carotid artery calcifications. The visualized lung apices are clear. IMPRESSION: 1. No acute intracranial abnormality. 2. No acute fracture of the cervical spine. 3. There is nondisplaced fracture of the right nasal bone. Electronically signed by: Donaldo Girard MD (05/05/2021 4:02 AM) [facility]
--- NOTE | 2021-05-05 04:10 | RAD ---
PQRS Compliance Statement: One or more of the following individualized dose reduction techniques were utilized for this examinat ion: 1. Automated exposure control 2. Adjustment of the mA and/or kV according to patient size 3. Use of iterative reconstruction technique CT THORAX WO Clinical Indication: Reason: fall, facial pain/trauma / Spl. Instructions: / History: Comparison: CT abdomen and pelvis with contrast May 16, 2019. TECHNIQUE: Helical CT imaging of the chest is performed without contrast. Findings: There is no adenopathy in the chest. The great vessels are normal caliber. There is coronary artery d isease. Calcific aortic valve stenosis. The cardiac size is normal, no pericardial effusion. There is no pleural abnormality. The central airways are patent. The lungs are clear. Cholecystectomy. Subtle nodular contour of the liver suggests chronic liver disease. There is unchang ed splenomegaly. No acute displaced rib fracture. The thoracic spine alignment is maintained. IMPRESSION: No acute traumatic injury in the chest. Electronically signed by: Donaldo Girard MD (05/05/2021 4:07 AM) [facility]
[2021-05-05] MEDS ORDERED: AMOXICILLIN/K CLAV 875/125MG TABLET. PO ONE (04:45)
[2021-05-05] MEDS ORDERED: DIPH,PERTUSS(ACELL),TET VAC/PF 0.5 ML SYRINGE. VAX IM ONE (04:45)
[2021-05-05] MEDS ORDERED: AMOX1TAB61 PO (05:11)
[2021-05-05] MEDS ORDERED: ORPHENADRINE CITRATE 60 MG/2 ML VIAL. IM ONE (05:30)
[2021-05-05 05:38] VITALS: BP 171/77
[2021-05-05] MEDS ORDERED: ORPH100T PO (05:39)
== END 2021-05-05 06:15 | disposition home or self-care (01) ==
LOC: ER 02:33
DX: S02.2XXA Fracture of nasal bones, initial encounter for closed fracture (principal); S20.211A Contusion of right front wall of thorax, initial encounter; S01.21XA Laceration without foreign body of nose, initial encounter; F10.129 Alcohol abuse with intoxication, unspecified; Y90.9 Presence of alcohol in blood, level not specified; R51.9 Headache, unspecified; M54.2 Cervicalgia; E11.9 Type 2 diabetes mellitus without complications; I25.2 Old myocardial infarction; I25.10 Atherosclerotic heart disease of native coronary artery without angina pectoris; Z87.891 Personal history of nicotine dependence; Z95.1 Presence of aortocoronary bypass graft
CPT/HCPCS: 12011; 70450; 70486; 71250; 72125; 90471; 90715; 96372; 99285; J2360; J3490